=== PATIENT | male | born 1935 | race Caucasian/White ===

== ENCOUNTER 2016-09-19 10:36 | Outpatient (CLI) | payer MEDICARE, OTHER | END 2016-09-19 10:37 | disposition home or self-care (01) | DX: I82.4Z1 Acute embolism and thrombosis of unspecified deep veins of right distal lower extremity (principal) ==

== ENCOUNTER 2016-10-10 13:18 | Outpatient (CLI) | payer MEDICARE, OTHER | END 2016-10-10 13:19 | disposition home or self-care (01) | LOC: LAB 13:18 | PROVIDERS: ATTEND Internal Medicine Hematology & Oncology | DX: I82.4Z1 Acute embolism and thrombosis of unspecified deep veins of right distal lower extremity (principal) | CPT/HCPCS: 85610 ==

== ENCOUNTER 2016-11-21 11:35 | Outpatient (CLI) | payer MEDICARE, OTHER | END 2016-11-21 11:36 | disposition home or self-care (01) | DX: I82.4Z1 Acute embolism and thrombosis of unspecified deep veins of right distal lower extremity (principal) ==

== ENCOUNTER 2016-12-11 10:32 | Outpatient (CLI) | payer MEDICARE, OTHER | END 2016-12-11 10:33 | disposition home or self-care (01) | DX: I82.4Z1 Acute embolism and thrombosis of unspecified deep veins of right distal lower extremity (principal) ==

== ENCOUNTER 2016-12-26 10:33 | Outpatient (CLI) | payer MEDICARE, OTHER | END 2016-12-26 10:34 | disposition home or self-care (01) | DX: I82.4Z1 Acute embolism and thrombosis of unspecified deep veins of right distal lower extremity (principal) ==

== ENCOUNTER 2017-01-02 11:39 | Outpatient (CLI) | payer MEDICARE, OTHER | END 2017-01-02 11:40 | disposition home or self-care (01) | DX: I82.4Z1 Acute embolism and thrombosis of unspecified deep veins of right distal lower extremity (principal) ==

== ENCOUNTER 2017-01-16 11:17 | Outpatient (CLI) | payer MEDICARE, OTHER | END 2017-01-16 11:18 | disposition home or self-care (01) | DX: I82.4Z1 Acute embolism and thrombosis of unspecified deep veins of right distal lower extremity (principal) ==

== ENCOUNTER 2017-02-13 10:53 | Outpatient (CLI) | payer MEDICARE, OTHER | END 2017-02-13 10:54 | disposition home or self-care (01) | LOC: LAB 10:53 | PROVIDERS: ATTEND Internal Medicine Hematology & Oncology | DX: I82.4Z1 Acute embolism and thrombosis of unspecified deep veins of right distal lower extremity (principal) | CPT/HCPCS: 85610 ==

== ENCOUNTER 2017-02-20 10:38 | Outpatient (CLI) | payer MEDICARE, OTHER | END 2017-02-20 10:39 | disposition home or self-care (01) | LOC: LAB 10:38 | PROVIDERS: ATTEND Internal Medicine Hematology & Oncology | DX: I82.4Z1 Acute embolism and thrombosis of unspecified deep veins of right distal lower extremity (principal) | CPT/HCPCS: 85610 ==

== ENCOUNTER 2017-03-13 11:41 | Outpatient (CLI) | payer MEDICARE, OTHER | END 2017-03-13 11:42 | disposition home or self-care (01) | LOC: LAB 11:41 | PROVIDERS: ATTEND Internal Medicine Hematology & Oncology | DX: I82.4Z1 Acute embolism and thrombosis of unspecified deep veins of right distal lower extremity (principal) | CPT/HCPCS: 85610 ==

== ENCOUNTER 2017-03-27 11:37 | Outpatient (CLI) | payer MEDICARE, OTHER | END 2017-03-27 11:38 | disposition home or self-care (01) | LOC: LAB 11:37 | PROVIDERS: ATTEND Internal Medicine Hematology & Oncology | DX: I82.4Z1 Acute embolism and thrombosis of unspecified deep veins of right distal lower extremity (principal) | CPT/HCPCS: 85610 ==

== ENCOUNTER 2017-04-10 11:00 | Outpatient (CLI) | payer MEDICARE, OTHER | END 2017-04-10 11:01 | disposition home or self-care (01) | LOC: LAB 11:00 | PROVIDERS: ATTEND Internal Medicine Hematology & Oncology | DX: I82.4Z1 Acute embolism and thrombosis of unspecified deep veins of right distal lower extremity (principal) | CPT/HCPCS: 85610 ==

== ENCOUNTER 2017-05-01 11:18 | Outpatient (CLI) | payer MEDICARE, OTHER | END 2017-05-01 11:19 | disposition home or self-care (01) | LOC: LAB 11:18 | PROVIDERS: ATTEND Internal Medicine Hematology & Oncology | DX: I82.4Z1 Acute embolism and thrombosis of unspecified deep veins of right distal lower extremity (principal) | CPT/HCPCS: 85610 ==

== ENCOUNTER 2017-05-15 10:37 | Outpatient (CLI) | payer MEDICARE, OTHER | END 2017-05-15 10:38 | disposition home or self-care (01) | LOC: LAB 10:37 | PROVIDERS: ATTEND Internal Medicine Hematology & Oncology | DX: I82.4Z1 Acute embolism and thrombosis of unspecified deep veins of right distal lower extremity (principal) | CPT/HCPCS: 85610 ==

== ENCOUNTER 2017-05-22 11:04 | Outpatient (CLI) | payer MEDICARE, OTHER | END 2017-05-22 11:05 | disposition home or self-care (01) | LOC: LAB 11:04 | PROVIDERS: ATTEND Internal Medicine Hematology & Oncology | DX: I82.4Z1 Acute embolism and thrombosis of unspecified deep veins of right distal lower extremity (principal) | CPT/HCPCS: 85610 ==

== ENCOUNTER 2017-06-05 11:04 | Outpatient (CLI) | payer MEDICARE, OTHER | END 2017-06-05 11:05 | disposition home or self-care (01) | LOC: LAB 11:04 | PROVIDERS: ATTEND Internal Medicine Hematology & Oncology | DX: I82.4Z1 Acute embolism and thrombosis of unspecified deep veins of right distal lower extremity (principal) | CPT/HCPCS: 85610 ==

== ENCOUNTER 2017-06-19 10:54 | Outpatient (CLI) | payer MEDICARE, OTHER | END 2017-06-19 10:55 | disposition home or self-care (01) | LOC: LAB 10:54 | PROVIDERS: ATTEND Internal Medicine Hematology & Oncology | DX: I82.4Z1 Acute embolism and thrombosis of unspecified deep veins of right distal lower extremity (principal) | CPT/HCPCS: 85610 ==

== ENCOUNTER 2017-07-17 10:22 | Outpatient (CLI) | payer MEDICARE, OTHER | END 2017-07-17 10:23 | disposition home or self-care (01) | LOC: LAB 10:22 | PROVIDERS: ATTEND Internal Medicine Hematology & Oncology | DX: I82.4Z1 Acute embolism and thrombosis of unspecified deep veins of right distal lower extremity (principal) | CPT/HCPCS: 85610 ==

== ENCOUNTER 2017-08-28 13:49 | Outpatient (CLI) | payer MEDICARE, OTHER | END 2017-08-28 13:50 | disposition home or self-care (01) | LOC: LAB 13:49 | PROVIDERS: ATTEND Internal Medicine Hematology & Oncology | DX: I82.4Z1 Acute embolism and thrombosis of unspecified deep veins of right distal lower extremity (principal) | CPT/HCPCS: 85610 ==

== ENCOUNTER 2017-09-11 11:35 | Outpatient (CLI) | payer MEDICARE, OTHER | END 2017-09-11 11:36 | disposition home or self-care (01) | LOC: LAB 11:35 | PROVIDERS: ATTEND Internal Medicine Hematology & Oncology | DX: I82.4Z1 Acute embolism and thrombosis of unspecified deep veins of right distal lower extremity (principal) | CPT/HCPCS: 85610 ==

== ENCOUNTER 2017-10-02 11:10 | Outpatient (CLI) | payer MEDICARE, OTHER | END 2017-10-02 11:11 | disposition home or self-care (01) | LOC: LAB 11:10 | PROVIDERS: ATTEND Internal Medicine Hematology & Oncology | DX: I82.4Z1 Acute embolism and thrombosis of unspecified deep veins of right distal lower extremity (principal) | CPT/HCPCS: 85610 ==

== ENCOUNTER 2017-10-16 10:54 | Outpatient (CLI) | payer MEDICARE, OTHER | END 2017-10-16 10:55 | disposition home or self-care (01) | LOC: LAB 10:54 | PROVIDERS: ATTEND Internal Medicine Hematology & Oncology | DX: I82.4Z1 Acute embolism and thrombosis of unspecified deep veins of right distal lower extremity (principal) | CPT/HCPCS: 85610 ==

== ENCOUNTER 2017-11-13 10:33 | Outpatient (CLI) | payer MEDICARE, OTHER | END 2017-11-13 10:34 | disposition home or self-care (01) | LOC: LAB 10:33 | PROVIDERS: ATTEND Internal Medicine Hematology & Oncology | DX: I82.4Z1 Acute embolism and thrombosis of unspecified deep veins of right distal lower extremity (principal) | CPT/HCPCS: 85610 ==

== ENCOUNTER 2017-11-26 10:53 | Outpatient (CLI) | payer MEDICARE, OTHER | END 2017-11-26 10:54 | disposition home or self-care (01) | LOC: LAB 10:53 | PROVIDERS: ATTEND Internal Medicine Hematology & Oncology | DX: I82.4Z1 Acute embolism and thrombosis of unspecified deep veins of right distal lower extremity (principal) | CPT/HCPCS: 85610 ==

== ENCOUNTER 2017-12-11 10:11 | Outpatient (CLI) | payer MEDICARE, OTHER | END 2017-12-11 10:12 | disposition home or self-care (01) | LOC: LAB 10:11 | PROVIDERS: ATTEND Internal Medicine Hematology & Oncology | DX: I82.4Z1 Acute embolism and thrombosis of unspecified deep veins of right distal lower extremity (principal) | CPT/HCPCS: 85610 ==

== ENCOUNTER 2017-12-25 10:32 | Outpatient (CLI) | payer MEDICARE, OTHER | END 2017-12-25 10:33 | disposition home or self-care (01) | LOC: LAB 10:32 | PROVIDERS: ATTEND Internal Medicine Hematology & Oncology | DX: I82.4Z1 Acute embolism and thrombosis of unspecified deep veins of right distal lower extremity (principal) | CPT/HCPCS: 85610 ==

== ENCOUNTER 2018-01-08 10:48 | Outpatient (CLI) | payer MEDICARE, OTHER | END 2018-01-08 10:49 | disposition home or self-care (01) | LOC: LAB 10:48 | PROVIDERS: ATTEND Internal Medicine Hematology & Oncology | DX: I82.4Z1 Acute embolism and thrombosis of unspecified deep veins of right distal lower extremity (principal) | CPT/HCPCS: 85610 ==

== ENCOUNTER 2018-01-22 10:26 | Outpatient (CLI) | payer MEDICARE, OTHER | END 2018-01-22 10:27 | disposition home or self-care (01) | LOC: LAB 10:26 | PROVIDERS: ATTEND Internal Medicine Hematology & Oncology | DX: I82.4Z1 Acute embolism and thrombosis of unspecified deep veins of right distal lower extremity (principal) | CPT/HCPCS: 85610 ==

== ENCOUNTER 2018-02-12 10:38 | Outpatient (CLI) | payer MEDICARE, OTHER | END 2018-02-12 10:39 | disposition home or self-care (01) | LOC: LAB 10:38 | PROVIDERS: ATTEND Internal Medicine Hematology & Oncology | DX: I82.4Z1 Acute embolism and thrombosis of unspecified deep veins of right distal lower extremity (principal) | CPT/HCPCS: 85610 ==

== ENCOUNTER 2018-02-26 10:46 | Outpatient (CLI) | payer MEDICARE, OTHER | END 2018-02-26 10:47 | disposition home or self-care (01) | LOC: LAB 10:46 | PROVIDERS: ATTEND Internal Medicine Hematology & Oncology | DX: I82.4Z1 Acute embolism and thrombosis of unspecified deep veins of right distal lower extremity (principal) | CPT/HCPCS: 36415; 85610 ==

== ENCOUNTER 2018-03-26 11:13 | Outpatient (CLI) | payer MEDICARE, OTHER | END 2018-03-26 11:14 | disposition home or self-care (01) | LOC: LAB 11:13 | PROVIDERS: ATTEND Internal Medicine Hematology & Oncology | DX: I82.4Z1 Acute embolism and thrombosis of unspecified deep veins of right distal lower extremity (principal) | CPT/HCPCS: 85610 ==

== ENCOUNTER 2018-04-10 11:11 | Outpatient (CLI) | payer MEDICARE, OTHER | END 2018-04-10 11:12 | disposition home or self-care (01) | LOC: LAB 11:11 | PROVIDERS: ATTEND Internal Medicine Hematology & Oncology | DX: I82.4Z1 Acute embolism and thrombosis of unspecified deep veins of right distal lower extremity (principal) | CPT/HCPCS: 85610 ==

== ENCOUNTER 2018-04-12 12:16 | Outpatient (CLI) | payer MEDICARE, OTHER | END 2018-04-12 12:17 | disposition critical access hospital (66) | LOC: EMS 12:16 | PROVIDERS: ATTEND Surgery | DX: R07.89 Other chest pain (principal); R05 Cough | CPT/HCPCS: A0425; A0427 ==

== ENCOUNTER 2018-04-12 12:50 | Emergency (ER) | payer MEDICARE, OTHER ==
--- NOTE | 2018-04-12 12:57 | ED Physician Documentation ---
PD HPI CHEST PAIN - Stated complaint Stated Complaint: CHEST PX - Chief complaint Chief Complaint: Cardiac - History obtained from History obtained from: Patient, EMS - History of Present Illness Timing - onset: Today Timing - onset during: Rest Timing - duration: Hours (8) Timing - details: Other (woke up with symptoms) Pain level max: 7 Pain level now: 0 Quality: Pressure, Aching Location: Right shoulder/arm Radiation: Other (chest) Improved by: Nitro (EMS thinks NTG x 1 helped, but pt is unsure), Nothing, Other (taking a deep breath) Worsened by: No: Exertion, Inspiration, Eating, Movement, Palpation, Position Associated symptoms: No: Shortness of air, Diaphoresis, Nausea, Vomiting, Feeling faint / dizzy, General Weakness, Palpitations, Cough Similar symptoms before: Diagnosis (chronic R shoulder pain) Recently seen: Not recently seen - Additional information Additional information: states walked 2 miles with the pain and no changes in the symptoms. States lifted weights and that may have made his shoulder hurt more than usual. Review of Systems Ten Systems: 10 systems reviewed and negative Constitutional: denies: Fever, Chills Ears: reports: Loss of hearing (chronic hearing loss) Nose: denies: Rhinorrhea / runny nose, Congestion Throat: denies: Sore throat Cardiac: denies: Palpitations Respiratory: denies: Dyspnea, Cough, Hemoptysis, Wheezing GI: denies: Abdominal Pain, Abdominal Swelling, Nausea, Vomiting, Constipation, Diarrhea : denies: Dysuria, Frequency, Hesitancy Skin: denies: Rash Musculoskeletal: denies: Neck pain, Back pain Neurologic: denies: Focal weakness, Numbness, Headache PD PAST MEDICAL HISTORY - Past Medical History Past Medical History: Yes Cardiovascular: Hypertension, High cholesterol - Past Surgical History Past Surgical History: Yes - Present Medications Home Medications: Ambulatory Orders Medication Instructions Recorded Confirmed Calcium Carbonate/Vitamin D3 1 tab ORAL DAILY 05/19/15 05/19/15 [Calcium 500 + Vit D 200 Tablet] Folic Acid 1 mg PO DAILY 05/19/15 05/19/15 Methotrexate Sodium [Methotrexate] 30 mg PO ONCE 05/19/15 05/20/15 Omeprazole [PriLOSEC] 20 mg PO QDLUNCH 05/19/15 05/20/15 Tamsulosin [Flomax] 0.4 mg PO QPM 05/19/15 05/20/15 Warfarin [Coumadin] 2.5 mg PO DAILY 05/19/15 05/19/15 predniSONE [Deltasone] 5 mg PO 0800 05/19/15 05/20/15 Albuterol Sulf [Ventolin Hfa 04/12/18 Inhaler] Fluticasone/Salmeterol [Advair 04/12/18 100-50 Diskus] Losartan [Cozaar] 04/12/18 Nystatin Cream [Mycostatin Cream] 04/12/18 Triamcinolone 0.1% Cream [Kenalog 04/12/18 0.1% Cream] Ubidecarenone [Coenzyme Q-10] 04/12/18 - Allergies Allergies/Adverse Reactions: Allergies Allergy/AdvReac Type Severity Reaction Status Date / Time hydroxychloroquine sulfate * Allergy Intermediate Itching Verified 04/12/18 12: 59 [From Plaquenil] - Social History Does the pt smoke?: No Smoking Status: Never smoker Does the pt drink ETOH?: No Does the pt have substance abuse?: No - Immunizations Immunizations are current?: Yes - POLST Patient has POLST: No PD ED PE NORMAL - Vitals Vital signs reviewed: Yes - General General: Alert and oriented X 3, No acute distress, Well developed/nourished - HEENT HEENT: PERRL, Ears normal, Moist mucous membranes, Pharynx benign - Neck Neck: Supple, no meningeal sign - Cardiac Cardiac: RRR, Strong equal pulses - Respiratory Respiratory: No respiratory distress, Clear bilaterally - Abdomen Abdomen: Soft, Non tender, Non distended - Back Back: No spinal TTP - Derm Derm: Warm and dry, No rash - Extremities Extremities: Normal ROM s pain, No edema, No calf tenderness / cord - Neuro Neuro: Alert and oriented X 3 - Psych Psych: Normal mood, Normal affect Results - Vitals Vitals: Vital Signs - 24 hr 04/12/18 04/12/18 04/12/18 12:50 13:14 14:00 Temperature 36.7 C Heart Rate 76 79 71 Respiratory 18 20 15 Rate Blood Pressure 157/90 H 150/88 H 128/78 O2 Saturation 98 92 94 04/12/18 04/12/18 15:00 16:45 Temperature 36.6 C Heart Rate 68 68 Respiratory 14 12 Rate Blood Pressure 141/73 H 159/86 H O2 Saturation 94 95 Oxygen O2 Source [] Room air O2 Source Room air - EKG (time done) 1255 Rate: Rate (enter#) (74) Rhythm: NSR, Other (PVC) Shirley: Normal Intervals: Normal MD QRS: Normal Ischemia: Normal ST segments, Q waves (III, aVF) - Labs Labs: Laboratory Tests 04/12/18 04/12/18 04/12/18 13:25 13:25 13:25 WBC 9.0 RBC 3.83 L Hgb 12.9 L Hct 37.6 L MCV 98.3 H MCH 33.6 H MCHC 34.2 RDW 16.0 H Plt Count 276 MPV 6.7 L Neut # (Auto) 7.7 H Lymph # (Auto) 0.4 L [place] # (Auto) 0.8 Eos # (Auto) 0.0 Baso # (Auto) 0.1 Absolute Nucleated RBC 0.00 Nucleated RBC % 0.0 PT INR Sodium 137 Potassium 3.6 Chloride 104 Carbon Dioxide 23 Anion Gap 10.0 BUN 16 Creatinine 0.8 Estimated GFR (MDRD) 92 Glucose 129 H Calcium 8.9 Total Bilirubin 0.9 AST 30 ALT 30 Alkaline Phosphatase 48 Troponin I < 0.04 Total Protein 6.8 Albumin 3.4 Globulin 3.4 Albumin/Globulin Ratio 1.0 Lipase 23 04/12/18 04/12/18 13:25 16:29 WBC RBC Hgb Hct MCV MCH MCHC RDW Plt Count MPV Neut # (Auto) Lymph # (Auto) [place] # (Auto) Eos # (Auto) Baso # (Auto) Absolute Nucleated RBC Nucleated RBC % PT 28.4 H INR 2.6 H Sodium Potassium Chloride Carbon Dioxide Anion Gap BUN Creatinine Estimated GFR (MDRD) Glucose Calcium Total Bilirubin AST ALT Alkaline Phosphatase Troponin I < 0.04 Total Protein Albumin Globulin Albumin/Globulin Ratio Lipase - Rads (name of study) cxr Radiology: Prelim report reviewed, EMP read contemporaneously, See rad report ( No acute disease. ) PD MEDICAL DECISION MAKING - ED course Complexity details: reviewed results, re-evaluated patient, considered differential (No ST elevation [place], no aortic dissection, no PE, no tension pneumothorax, no aortic aneurysm), d/w patient ED course: Patient is an 83-year-old male who presents to the emergency department with right shoulder pain radiating to the left chest. Resolved prior to arrival in the emergency department. Negative troponin 2. Negative EKG, chest x-ray. Does not sound typical for cardiac pain, but sounds more consistent with his chronic shoulder pain. Heart score of 3. Patient would like to go home at this time rather than stay in the hospital. Patient and family counseled regarding signs and symptoms for which I believe and urgent re-evaluation would be necessary. Patient with good understanding of and agreement to plan and is comfortable going home at this time This document was made in part using voice recognition software. While efforts are made to proofread this document, sound alike and grammatical errors may occur. - Sepsis Event Vital Signs: Vital Signs - 24 hr 04/12/18 04/12/18 04/12/18 12:50 13:14 14:00 Temperature 36.7 C Heart Rate 76 79 71 Respiratory 18 20 15 Rate Blood Pressure 157/90 H 150/88 H 128/78 O2 Saturation 98 92 94 04/12/18 04/12/18 15:00 16:45 Temperature 36.6 C Heart Rate 68 68 Respiratory 14 12 Rate Blood Pressure 141/73 H 159/86 H O2 Saturation 94 95 Oxygen O2 Source [] Room air O2 Source Room air Departure - Departure Disposition: 01 Home, Self Care Clinical Impression: Chest pain Qualifiers: Chest pain type: unspecified Qualified Code(s): R07.9 - Chest pain, unspecified Condition: Good Instructions: ED Chest Pain Atypical Unkn Cause Follow-Up: your,doctor in 3 days for repeat evaluation [Other] Comments: The cause of your symptoms is unclear today. Your tests are normal. Return if you worsen. Discharge Date/Time: 04/12/18 17:09
[2018-04-12 13:33] LABS: BASOPHILS # (AUTO) 0.1 10^3/uL (0.0-0.1); BASOPHILS % (AUTO) 0.6 %; EOSINOPHILS % (AUTO) 0.1 %; HGB - HEMOGLOBIN 12.9 g/dL (14.0-18.0); LYMPHOCYTES # (AUTO) 0.4 10^3/uL (1.5-3.5); LYMPHOCYTES % (AUTO) 4.6 %; MEAN CORPUSCULAR HEMOGLOBIN 33.6 pg (27.0-31.0); MEAN CORPUSCULAR HGB CONC 34.2 g/dL (32.0-36.0); MEAN CORPUSCULAR VOLUME 98.3 fL (80.0-94.0); MEAN PLATELET VOLUME 6.7 fL (7.4-11.4); MONOCYTES # (AUTO) 0.8 10^3/uL (0.0-1.0); MONOCYTES % (AUTO) 8.5 %; NEUTROPHILS # (AUTO) 7.7 10^3/uL (1.5-6.6); NEUTROPHILS % (AUTO) 86.2 %; PLT - PLATELET COUNT 276 10^3/uL (130-450); RED BLOOD COUNT 3.83 10^6/uL (4.70-6.10)
[2018-04-12 13:41] LABS: INR 2.6 (0.8-1.2); PT - PROTHROMBIN TIME 28.4 secs (9.9-12.6)
[2018-04-12 13:47] LABS: ALBUMIN 3.4 g/dL (3.2-5.5); BILIRUBIN,TOTAL 0.9 mg/dL (0.2-1.0); CALCIUM 8.9 mg/dL (8.5-10.3); CREATININE 0.8 mg/dL (0.6-1.2); TOTAL PROTEIN 6.8 g/dL (6.7-8.2)
--- NOTE | 2018-04-12 13:49 | XRAY Report ---
Procedure Date: 04/12/2018 Accession Number: [id number] / [id number] Procedure: XR - Chest 1 View X-Ray CPT Code: 16131 FULL RESULT: EXAM: CHEST RADIOGRAPHY EXAM DATE: 04/12/2018 01:12 PM. CLINICAL HISTORY: Chest pain. COMPARISON: None. TECHNIQUE: 1 view. FINDINGS: Lungs/Pleura: There is evidence of a calcified granuloma or calcified scar otherwise at the right midlung. No evidence of focal infiltrate or edema. No pleural effusion. Mediastinum: Within exam limitations, the cardiomediastinal contour is normal. Other: None. IMPRESSION: No acute disease. RADIA
[2018-04-12 17:09] VITALS: BP 159/86
== END 2018-04-12 17:09 | disposition home or self-care (01) ==
LOC: EDUNIT# → ED 12:50
DX: R07.9 Chest pain, unspecified (principal); I10 Essential (primary) hypertension; E78.00 Pure hypercholesterolemia, unspecified; Z79.01 Long term (current) use of anticoagulants
CPT/HCPCS: 36415; 71045; 80053; 83690; 84484; 85025; 85610; 93005; 99283; 99284

== ENCOUNTER 2018-04-16 11:05 | Outpatient (CLI) | payer MEDICARE, OTHER | END 2018-04-16 11:06 | disposition home or self-care (01) | LOC: LAB 11:05 | PROVIDERS: ATTEND Internal Medicine Hematology & Oncology | DX: I82.4Z1 Acute embolism and thrombosis of unspecified deep veins of right distal lower extremity (principal) | CPT/HCPCS: 85610 ==

== ENCOUNTER 2018-05-13 10:56 | Outpatient (CLI) | payer MEDICARE, OTHER | END 2018-05-13 10:57 | disposition home or self-care (01) | LOC: LAB 10:56 | PROVIDERS: ATTEND Internal Medicine Hematology & Oncology | DX: I82.4Z1 Acute embolism and thrombosis of unspecified deep veins of right distal lower extremity (principal) | CPT/HCPCS: 85610 ==

== ENCOUNTER 2018-07-09 10:49 | Outpatient (CLI) | payer MEDICARE, OTHER ==
[2018-07-09 11:43] LABS: INR 2.8 (0.8-1.2); PT - PROTHROMBIN TIME 31.1 secs (9.9-12.6)
== END 2018-07-09 10:50 | disposition home or self-care (01) ==
LOC: LAB 10:49
PROVIDERS: ATTEND Internal Medicine Hematology & Oncology
DX: I82.4Z1 Acute embolism and thrombosis of unspecified deep veins of right distal lower extremity (principal)
CPT/HCPCS: 36415; 85610

== ENCOUNTER 2018-07-16 11:08 | Outpatient (CLI) | payer MEDICARE, OTHER ==
[2018-07-16 11:38] LABS: INR 2.4 (0.8-1.2)
== END 2018-07-16 11:09 | disposition home or self-care (01) ==
LOC: LAB 11:08
PROVIDERS: ATTEND Internal Medicine Hematology & Oncology
DX: I82.4Z1 Acute embolism and thrombosis of unspecified deep veins of right distal lower extremity (principal)
CPT/HCPCS: 36415; 85610

== ENCOUNTER 2018-07-30 10:43 | Outpatient (CLI) | payer MEDICARE, OTHER | END 2018-07-30 10:44 | disposition home or self-care (01) | LOC: LAB 10:43 | PROVIDERS: ATTEND Internal Medicine Hematology & Oncology | DX: I82.4Z1 Acute embolism and thrombosis of unspecified deep veins of right distal lower extremity (principal) | CPT/HCPCS: 85610 ==

== ENCOUNTER 2018-08-13 16:27 | Outpatient (CLI) | payer MEDICARE, OTHER | END 2018-08-13 16:28 | disposition short-term general hospital (02) | LOC: EMS 16:27 | PROVIDERS: ATTEND Surgery | DX: R41.82 Altered mental status, unspecified (principal) | CPT/HCPCS: A0425; A0429 ==

== ENCOUNTER 2018-10-02 08:00 | Outpatient (CLI) | payer MEDICARE, OTHER ==
[2018-10-02 17:38] LABS: CALCIUM 8.8 mg/dL (8.5-10.3); CREATININE 0.7 mg/dL (0.6-1.2)
== END 2018-10-02 08:01 ==
LOC: LAB.R 08:00
PROVIDERS: ATTEND Nurse Practitioner
DX: I50.9 Heart failure, unspecified (principal)
CPT/HCPCS: 80048

== ENCOUNTER 2018-10-16 11:25 | Outpatient (CLI) | payer MEDICARE, OTHER ==
[2018-10-16 20:01] LABS: CREATININE 0.8 mg/dL (0.6-1.2)
== END 2018-10-16 23:59 | disposition home or self-care (01) ==
LOC: LAB.R 11:25
PROVIDERS: ATTEND Nurse Practitioner
DX: I50.9 Heart failure, unspecified (principal)
CPT/HCPCS: 80051; 82565; 84520

== ENCOUNTER 2018-11-12 10:44 | Outpatient (CLI) | payer MEDICARE, OTHER | END 2018-11-12 10:45 | disposition home or self-care (01) | LOC: LAB 10:44 | PROVIDERS: ATTEND Internal Medicine Hematology & Oncology | DX: I82.4Z1 Acute embolism and thrombosis of unspecified deep veins of right distal lower extremity (principal) | CPT/HCPCS: 85610 ==

== ENCOUNTER 2018-12-10 10:41 | Outpatient (CLI) | payer MEDICARE, OTHER | END 2018-12-10 10:42 | disposition home or self-care (01) | LOC: LAB 10:41 | PROVIDERS: ATTEND Internal Medicine Hematology & Oncology | DX: I82.4Z1 Acute embolism and thrombosis of unspecified deep veins of right distal lower extremity (principal) | CPT/HCPCS: 85610 ==

== ENCOUNTER 2019-01-01 22:48 | Outpatient (CLI) | payer MEDICARE, OTHER | END 2019-01-01 22:49 | disposition short-term general hospital (02) | LOC: EMS 22:48 | PROVIDERS: ATTEND Surgery | DX: R09.89 Other specified symptoms and signs involving the circulatory and respiratory systems (principal); M54.2 Cervicalgia | CPT/HCPCS: A0425; A0427 ==

== ENCOUNTER 2019-01-07 07:11 | Outpatient (CLI) | payer MEDICARE, OTHER | END 2019-01-07 07:12 | disposition short-term general hospital (02) | LOC: EMS 07:11 | PROVIDERS: ATTEND Surgery | DX: R09.89 Other specified symptoms and signs involving the circulatory and respiratory systems (principal); R68.89 Other general symptoms and signs | CPT/HCPCS: A0425; A0427 ==

== ENCOUNTER 2019-04-14 11:53 | Outpatient (CLI) | payer MEDICARE, OTHER ==
[2019-04-14 12:20] LABS: HGB - HEMOGLOBIN 10.1 g/dL (14.0-18.0); MEAN CORPUSCULAR HEMOGLOBIN 30.1 pg (27.0-31.0); RED BLOOD COUNT 3.36 10^6/uL (4.70-6.10); RED CELL DISTRIBUTION WIDTH 20.5 % (12.0-15.0)
[2019-04-14 12:44] LABS: ALBUMIN 3.3 g/dL (3.2-5.5); ALBUMIN/GLOBULIN RATIO 1.1 (1.0-2.2); BILIRUBIN,TOTAL 0.8 mg/dL (0.2-1.0); CALCIUM 8.7 mg/dL (8.5-10.3); CREATININE 0.8 mg/dL (0.6-1.2); TOTAL PROTEIN 6.4 g/dL (6.7-8.2)
== END 2019-04-14 11:54 | disposition home or self-care (01) ==
LOC: LAB 11:53
PROVIDERS: ATTEND Internal Medicine Cardiovascular Disease
DX: R06.02 Shortness of breath (principal); I48.92 Unspecified atrial flutter; I25.110 Atherosclerotic heart disease of native coronary artery with unstable angina pectoris; I10 Essential (primary) hypertension; Z79.899 Other long term (current) drug therapy
CPT/HCPCS: 36415; 80053; 83880; 85027

== ENCOUNTER 2019-11-18 13:37 | Outpatient (CLI) | payer MEDICARE, OTHER ==
[2019-11-18 14:10] LABS: BASOPHILS % (AUTO) 0.2 %; EOSINOPHILS % (AUTO) 0.4 %; HGB - HEMOGLOBIN 9.2 g/dL (14.0-18.0); LYMPHOCYTES # (AUTO) 0.4 10^3/uL (1.5-3.5); LYMPHOCYTES % (AUTO) 7.3 %; MEAN CORPUSCULAR HEMOGLOBIN 27.9 pg (27.0-31.0); MEAN CORPUSCULAR HGB CONC 31.2 g/dL (32.0-36.0); MEAN CORPUSCULAR VOLUME 89.4 fL (80.0-94.0); MEAN PLATELET VOLUME 9.8 fL (7.4-11.4); MONOCYTES # (AUTO) 0.5 10^3/uL (0.0-1.0); MONOCYTES % (AUTO) 8.7 %; NEUTROPHILS # (AUTO) 4.7 10^3/uL (1.5-6.6); NEUTROPHILS % (AUTO) 82.9 %; PLT - PLATELET COUNT 256 10^3/uL (130-450); RED CELL DISTRIBUTION WIDTH 22.1 % (12.0-15.0); WHITE BLOOD COUNT 5.6 x10^3/uL (4.8-10.8)
[2019-11-18 14:26] LABS: ALBUMIN 3.3 g/dL (3.2-5.5); ALKALINE PHOSPHATASE 40 IU/L (42-121); ALT ALANINE AMINOTRANSFERASE 32 IU/L (10-60); AST ASPARTATE AMINOTRANSFERASE 28 IU/L (10-42); BILIRUBIN,TOTAL 0.6 mg/dL (0.2-1.0); BUN - BLOOD UREA NITROGEN 21 mg/dL (6-20); CALCIUM 8.5 mg/dL (8.5-10.3); CARBON DIOXIDE - CO2 23 mmol/L (21-32); CHLORIDE 106 mmol/L (101-111); CREATININE 0.8 mg/dL (0.6-1.2); GFR - MDRD 92 (>89); GLUCOSE 138 mg/dL (70-100); SODIUM 135 mmol/L (135-145); TOTAL PROTEIN 6.5 g/dL (6.7-8.2)
[2019-11-18 14:27] LABS: CRP - C-REACTIVE PROTEIN < 1.0 mg/dL (0-1.0)
[2019-11-20 09:54] LABS: COMPLEMENT COMPONENT C3C 98 mg/dL; COMPLEMENT COMPONENT C4C 5 mg/dL
== END 2019-11-18 13:38 | disposition home or self-care (01) ==
LOC: LAB 13:37
PROVIDERS: ATTEND Internal Medicine
DX: M35.09 Sjogren syndrome with other organ involvement (principal); Z79.899 Other long term (current) drug therapy
CPT/HCPCS: 36415; 80053; 81001; 81003; 85025; 85651; 86140; 86160; 87086

== ENCOUNTER 2019-12-03 12:28 | Outpatient (CLI) | payer MEDICARE, OTHER ==
[2019-12-03 12:46] LABS: BASOPHILS % (AUTO) 0.2 %; EOSINOPHILS # (AUTO) 0.1 10^3/uL (0.0-0.7); EOSINOPHILS % (AUTO) 1.5 %; HGB - HEMOGLOBIN 9.3 g/dL (14.0-18.0); LYMPHOCYTES # (AUTO) 0.4 10^3/uL (1.5-3.5); LYMPHOCYTES % (AUTO) 6.6 %; MEAN CORPUSCULAR HEMOGLOBIN 27.3 pg (27.0-31.0); MEAN CORPUSCULAR HGB CONC 31.1 g/dL (32.0-36.0); MEAN CORPUSCULAR VOLUME 87.7 fL (80.0-94.0); MONOCYTES # (AUTO) 0.9 10^3/uL (0.0-1.0); MONOCYTES % (AUTO) 16.8 %; NEUTROPHILS # (AUTO) 4.1 10^3/uL (1.5-6.6); NEUTROPHILS % (AUTO) 74.2 %; PLT - PLATELET COUNT 229 10^3/uL (130-450); RED BLOOD COUNT 3.41 10^6/uL (4.70-6.10); RED CELL DISTRIBUTION WIDTH 22.5 % (12.0-15.0); WHITE BLOOD COUNT 5.5 x10^3/uL (4.8-10.8)
[2019-12-03 12:56] LABS: ALBUMIN 3.3 g/dL (3.2-5.5); ALBUMIN/GLOBULIN RATIO 1.1 (1.0-2.2); BILIRUBIN,TOTAL 0.6 mg/dL (0.2-1.0); CALCIUM 8.4 mg/dL (8.5-10.3); CREATININE 0.8 mg/dL (0.6-1.2); TOTAL PROTEIN 6.3 g/dL (6.7-8.2)
== END 2019-12-03 12:29 | disposition home or self-care (01) ==
LOC: LAB 12:28
PROVIDERS: ATTEND Internal Medicine Medical Oncology
DX: D47.2 Monoclonal gammopathy (principal); M35.00 Sjogren syndrome, unspecified
CPT/HCPCS: 36415; 80053; 82784; 85025

== ENCOUNTER 2020-01-13 11:47 | Outpatient (CLI) | payer MEDICARE, OTHER ==
[2020-01-13 12:15] LABS: BILIRUBIN,URINE NEGATIVE (NEGATIVE); GLUCOSE, URINE (UA) NEGATIVE (NEGATIVE); KETONES,URINE (UA) NEGATIVE (NEGATIVE); LEUKOCYTE ESTERASE, URINE NEGATIVE (NEGATIVE); NITRITE,URINE NEGATIVE (NEGATIVE); OCCULT BLOOD,URINE TRACE-INTA (NEGATIVE); PROTEIN,URINE NEGATIVE (NEGATIVE); UROBILINOGEN,URINE 0.2 (NORMAL) E.U./dL (NORMAL)
[2020-01-13 12:17] LABS: BASOPHILS % (AUTO) 0.3 %; EOSINOPHILS # (AUTO) 0.1 10^3/uL (0.0-0.7); EOSINOPHILS % (AUTO) 0.9 %; HGB - HEMOGLOBIN 10.1 g/dL (14.0-18.0); LYMPHOCYTES # (AUTO) 0.3 10^3/uL (1.5-3.5); LYMPHOCYTES % (AUTO) 4.5 %; MEAN CORPUSCULAR HEMOGLOBIN 27.7 pg (27.0-31.0); MEAN CORPUSCULAR HGB CONC 31.2 g/dL (32.0-36.0); MEAN CORPUSCULAR VOLUME 88.8 fL (80.0-94.0); MEAN PLATELET VOLUME 9.7 fL (7.4-11.4); MONOCYTES # (AUTO) 0.9 10^3/uL (0.0-1.0); MONOCYTES % (AUTO) 14.1 %; NEUTROPHILS # (AUTO) 5.3 10^3/uL (1.5-6.6); NEUTROPHILS % (AUTO) 79.7 %; PLT - PLATELET COUNT 224 10^3/uL (130-450); RED BLOOD COUNT 3.65 10^6/uL (4.70-6.10); RED CELL DISTRIBUTION WIDTH 24.7 % (12.0-15.0); WHITE BLOOD COUNT 6.6 x10^3/uL (4.8-10.8)
[2020-01-13 12:28] LABS: CLARITY,URINE CLEAR (CLEAR)
[2020-01-13 12:29] LABS: BACTERIA,URINE Rare /HPF (None Seen); RBC,URINE 0-5 /HPF (0-5); SQUAMOUS EPITHELIAL CELL,UR NONE SEEN (<= Few)
[2020-01-13 12:35] LABS: ALBUMIN 3.4 g/dL (3.2-5.5); ALBUMIN/GLOBULIN RATIO 1.2 (1.0-2.2); BILIRUBIN,TOTAL 0.5 mg/dL (0.2-1.0); CALCIUM 8.6 mg/dL (8.5-10.3); CREATININE 0.8 mg/dL (0.6-1.2); TOTAL PROTEIN 6.3 g/dL (6.7-8.2)
[2020-01-15 10:39] LABS: COMPLEMENT COMPONENT C3C 100 mg/dL; COMPLEMENT COMPONENT C4C 6 mg/dL
== END 2020-01-13 11:48 | disposition home or self-care (01) ==
LOC: LAB 11:47
PROVIDERS: ATTEND Internal Medicine
DX: M35.09 Sjogren syndrome with other organ involvement (principal); Z79.899 Other long term (current) drug therapy
CPT/HCPCS: 36415; 80053; 81001; 83540; 84466; 85025; 85651; 86160; 87086

== ENCOUNTER 2020-02-08 09:22 | Outpatient (CLI) | payer MEDICARE, OTHER | END 2020-02-08 09:23 | disposition home or self-care (01) | LOC: LAB 09:22 | PROVIDERS: ATTEND Dermatology | DX: Z11.59 Encounter for screening for other viral diseases (principal); Z20.828 Contact with and (suspected) exposure to other viral communicable diseases | CPT/HCPCS: 81599 ==

== ENCOUNTER 2022-05-15 07:12 | Outpatient (CLI) | payer MEDICARE, OTHER ==
[2022-05-15 07:40] LABS: BASOPHILS % (AUTO) 0.5 %; EOSINOPHILS # (AUTO) 0.2 10^3/uL (0.0-0.7); EOSINOPHILS % (AUTO) 3.9 %; HCT - HEMATOCRIT 36.1 % (42.0-52.0); HGB - HEMOGLOBIN 12.4 g/dL (14.0-18.0); LYMPHOCYTES # (AUTO) 0.5 10^3/uL (1.5-3.5); LYMPHOCYTES % (AUTO) 10.8 %; MEAN CORPUSCULAR HEMOGLOBIN 34.6 pg (27.0-31.0); MEAN CORPUSCULAR HGB CONC 34.3 g/dL (32.0-36.0); MEAN CORPUSCULAR VOLUME 100.8 fL (80.0-94.0); MEAN PLATELET VOLUME 9.7 fL (7.4-11.4); MONOCYTES # (AUTO) 0.8 10^3/uL (0.0-1.0); MONOCYTES % (AUTO) 18.3 %; NEUTROPHILS # (AUTO) 2.9 10^3/uL (1.5-6.6); NEUTROPHILS % (AUTO) 65.8 %; PLT - PLATELET COUNT 162 10^3/uL (130-450); RED BLOOD COUNT 3.58 10^6/uL (4.70-6.10); RED CELL DISTRIBUTION WIDTH 16.5 % (12.0-15.0); WHITE BLOOD COUNT 4.4 x10^3/uL (4.8-10.8)
[2022-05-15 08:08] LABS: ALBUMIN 3.5 g/dL (3.2-5.5); BILIRUBIN,TOTAL 1.1 mg/dL (0.2-1.0); CREATININE 0.7 mg/dL (0.6-1.2); POTASSIUM 3.5 mmol/L (3.5-5.0); TOTAL PROTEIN 6.9 g/dL (6.7-8.2)
[2022-05-16 18:07] LABS: KAPPA FREE LT CHAINS SERUM 165.5 mg/L (3.3-19.4); LAMBDA FREE LT CHAINS SERUM 17.6 mg/L (5.7-26.3)
[2022-05-17 16:08] LABS: ALBUMIN 3.2 g/dL (2.9-4.4); ALPHA-1-GLOBULIN 0.2 g/dL (0.0-0.4); ALPHA-2-GLOBULIN 0.6 g/dL (0.4-1.0); BETA GLOBULIN 1.2 g/dL (0.7-1.3); GAMMA GLOBULIN 1.1 g/dL (0.4-1.8); GLOBULIN, TOTAL 3.1 g/dL (2.2-3.9); PROTEIN TOTAL 6.3 g/dL (6.0-8.5)
== END 2022-05-15 07:13 | disposition home or self-care (01) ==
LOC: LAB 07:12
PROVIDERS: ATTEND Internal Medicine Medical Oncology
DX: D47.2 Monoclonal gammopathy (principal)
CPT/HCPCS: 36415; 80053; 82728; 83521; 83540; 83883; 84155; 84165; 84466; 85025

== ENCOUNTER 2022-07-24 08:00 | Outpatient (CLI) | payer MEDICARE, OTHER | END 2022-07-24 08:01 | disposition short-term general hospital (02) | LOC: EMS 08:00 | DX: M54.9 Dorsalgia, unspecified (principal); Z95.2 Presence of prosthetic heart valve; I25.2 Old myocardial infarction | CPT/HCPCS: A0425; A0427 ==

== ENCOUNTER → 2022-08-04 | Outpatient (CLI) | payer MEDICARE, OTHER | END | disposition short-term general hospital (02) | LOC: EMS 11:21 | DX: R29.898 Other symptoms and signs involving the musculoskeletal system (principal) | CPT/HCPCS: A0425; A0427 ==

== ENCOUNTER 2022-08-13 13:45 | Outpatient (CLI) | payer MEDICARE, OTHER ==
[2022-08-13 14:15] LABS: BASOPHILS % (AUTO) 0.4 %; EOSINOPHILS # (AUTO) 0.1 10^3/uL (0.0-0.7); EOSINOPHILS % (AUTO) 1.3 %; HCT - HEMATOCRIT 31.7 % (42.0-52.0); HGB - HEMOGLOBIN 10.5 g/dL (14.0-18.0); LYMPHOCYTES # (AUTO) 0.3 10^3/uL (1.5-3.5); LYMPHOCYTES % (AUTO) 5.4 %; MEAN CORPUSCULAR HEMOGLOBIN 34.3 pg (27.0-31.0); MEAN CORPUSCULAR HGB CONC 33.1 g/dL (32.0-36.0); MEAN CORPUSCULAR VOLUME 103.6 fL (80.0-94.0); MEAN PLATELET VOLUME 9.9 fL (7.4-11.4); MONOCYTES # (AUTO) 0.6 10^3/uL (0.0-1.0); MONOCYTES % (AUTO) 11.3 %; NEUTROPHILS # (AUTO) 4.5 10^3/uL (1.5-6.6); NEUTROPHILS % (AUTO) 80.9 %; PLT - PLATELET COUNT 197 10^3/uL (130-450); RED BLOOD COUNT 3.06 10^6/uL (4.70-6.10); RED CELL DISTRIBUTION WIDTH 17.2 % (12.0-15.0); WHITE BLOOD COUNT 5.5 x10^3/uL (4.8-10.8)
[2022-08-13 14:20] LABS: CALCIUM 8.4 mg/dL (8.5-10.3); CREATININE 0.6 mg/dL (0.6-1.2); POTASSIUM 4.2 mmol/L (3.5-5.0)
[2022-08-13 14:33] LABS: INR 1.5 (0.8-1.2); PT - PROTHROMBIN TIME 16.8 secs (9.9-12.6)
== END 2022-08-13 13:46 | disposition home or self-care (01) ==
LOC: LAB 13:45
PROVIDERS: ATTEND Internal Medicine Interventional Cardiology
DX: I48.0 Paroxysmal atrial fibrillation (principal); I35.0 Nonrheumatic aortic (valve) stenosis
CPT/HCPCS: 36415; 80048; 85025; 85610

== ENCOUNTER 2022-08-16 08:23 | Outpatient (CLI) | payer MEDICARE, OTHER | END 2022-08-16 08:24 | disposition short-term general hospital (02) | LOC: EMS 08:23 | DX: R06.02 Shortness of breath (principal); R05.9 Cough, unspecified; R11.0 Nausea | CPT/HCPCS: A0425; A0429 ==

== ENCOUNTER 2022-10-03 14:31 | Outpatient (CLI) | payer MEDICARE, OTHER ==
[2022-10-03 15:14] LABS: BILIRUBIN,URINE NEGATIVE (NEGATIVE); GLUCOSE, URINE (UA) NEGATIVE (NEGATIVE); KETONES,URINE (UA) NEGATIVE (NEGATIVE); LEUKOCYTE ESTERASE, URINE NEGATIVE (NEGATIVE); NITRITE,URINE NEGATIVE (NEGATIVE); OCCULT BLOOD,URINE NEGATIVE (NEGATIVE); PROTEIN,URINE NEGATIVE (NEGATIVE); UROBILINOGEN,URINE 0.2 (NORMAL) E.U./dL (NORMAL)
[2022-10-03 15:15] LABS: CLARITY,URINE CLEAR (CLEAR)
[2022-10-03 15:25] LABS: ALBUMIN 3.1 g/dL (3.2-5.5); BILIRUBIN,TOTAL 0.8 mg/dL (0.2-1.0); CALCIUM 8.6 mg/dL (8.5-10.3); CREATININE 0.6 mg/dL (0.6-1.2); POTASSIUM 3.7 mmol/L (3.5-5.0); TOTAL PROTEIN 6.1 g/dL (6.7-8.2)
[2022-10-03 15:38] LABS: BACTERIA,URINE None Seen /HPF (None Seen); RBC,URINE None Seen /HPF (0-5); SQUAMOUS EPITHELIAL CELL,UR NONE SEEN (<= Few); WBC,URINE 0-3 /HPF (0-3)
[2022-10-03 15:45] LABS: BASOPHILS % (AUTO) 0.2 %; EOSINOPHILS % (AUTO) 0.8 %; HCT - HEMATOCRIT 33.8 % (42.0-52.0); HGB - HEMOGLOBIN 10.9 g/dL (14.0-18.0); LYMPHOCYTES # (AUTO) 0.4 10^3/uL (1.5-3.5); LYMPHOCYTES % (AUTO) 8.1 %; MEAN CORPUSCULAR HEMOGLOBIN 32.9 pg (27.0-31.0); MEAN CORPUSCULAR HGB CONC 32.2 g/dL (32.0-36.0); MEAN CORPUSCULAR VOLUME 102.1 fL (80.0-94.0); MEAN PLATELET VOLUME 10.2 fL (7.4-11.4); MONOCYTES # (AUTO) 0.6 10^3/uL (0.0-1.0); MONOCYTES % (AUTO) 11.2 %; NEUTROPHILS # (AUTO) 3.9 10^3/uL (1.5-6.6); NEUTROPHILS % (AUTO) 78.5 %; PLT - PLATELET COUNT 142 10^3/uL (130-450); RED BLOOD COUNT 3.31 10^6/uL (4.70-6.10); RED CELL DISTRIBUTION WIDTH 16.7 % (12.0-15.0); WHITE BLOOD COUNT 4.9 x10^3/uL (4.8-10.8)
[2022-10-05 03:09] LABS: COMPLEMENT C3 87 mg/dL (82-167); COMPLEMENT C4 7 mg/dL (12-38)
== END 2022-10-03 14:32 | disposition home or self-care (01) ==
LOC: LAB 14:31
PROVIDERS: ATTEND Internal Medicine
DX: M35.0B Sjogren syndrome with vasculitis (principal); Z79.52 Long term (current) use of systemic steroids; Z79.631 Long term (current) use of antimetabolite agent
CPT/HCPCS: 36415; 80053; 81001; 85025; 85651; 86160

== ENCOUNTER 2022-10-09 12:16 | Outpatient (CLI) | payer MEDICARE, OTHER ==
[2022-10-09 12:31] LABS: BASOPHILS % (AUTO) 0.2 %; EOSINOPHILS % (AUTO) 0.3 %; HCT - HEMATOCRIT 35.1 % (42.0-52.0); HGB - HEMOGLOBIN 11.3 g/dL (14.0-18.0); LYMPHOCYTES # (AUTO) 0.3 10^3/uL (1.5-3.5); LYMPHOCYTES % (AUTO) 4.5 %; MEAN CORPUSCULAR HEMOGLOBIN 33.2 pg (27.0-31.0); MEAN CORPUSCULAR HGB CONC 32.2 g/dL (32.0-36.0); MEAN CORPUSCULAR VOLUME 103.2 fL (80.0-94.0); MEAN PLATELET VOLUME 10.2 fL (7.4-11.4); MONOCYTES # (AUTO) 0.2 10^3/uL (0.0-1.0); NEUTROPHILS # (AUTO) 5.8 10^3/uL (1.5-6.6); NEUTROPHILS % (AUTO) 91.7 %; PLT - PLATELET COUNT 175 10^3/uL (130-450); RED CELL DISTRIBUTION WIDTH 16.7 % (12.0-15.0); WHITE BLOOD COUNT 6.3 x10^3/uL (4.8-10.8)
[2022-10-09 12:44] LABS: BILIRUBIN,URINE NEGATIVE (NEGATIVE); GLUCOSE, URINE (UA) NEGATIVE (NEGATIVE); KETONES,URINE (UA) NEGATIVE (NEGATIVE); LEUKOCYTE ESTERASE, URINE NEGATIVE (NEGATIVE); NITRITE,URINE NEGATIVE (NEGATIVE); OCCULT BLOOD,URINE NEGATIVE (NEGATIVE); PROTEIN,URINE NEGATIVE (NEGATIVE); UROBILINOGEN,URINE 0.2 (NORMAL) E.U./dL (NORMAL)
[2022-10-09 12:46] LABS: ALBUMIN 3.1 g/dL (3.2-5.5); BILIRUBIN,TOTAL 0.9 mg/dL (0.2-1.0); CREATININE 0.6 mg/dL (0.6-1.2); TOTAL PROTEIN 6.3 g/dL (6.7-8.2)
[2022-10-09 12:53] LABS: BACTERIA,URINE None Seen /HPF (None Seen); CLARITY,URINE CLEAR (CLEAR); RBC,URINE None Seen /HPF (0-5); SQUAMOUS EPITHELIAL CELL,UR NONE SEEN (<= Few); WBC,URINE 0-3 /HPF (0-3)
[2022-10-09 12:55] LABS: CALCIUM 8.8 mg/dL (8.5-10.3)
[2022-10-10 08:10] LABS: COMPLEMENT C3 90 mg/dL (82-167); COMPLEMENT C4 9 mg/dL (12-38)
== END 2022-10-09 12:17 | disposition home or self-care (01) ==
LOC: LAB 12:16
PROVIDERS: ATTEND Internal Medicine
DX: M35.0B Sjogren syndrome with vasculitis (principal); L95.8 Other vasculitis limited to the skin; D63.8 Anemia in other chronic diseases classified elsewhere; M15.9 Polyosteoarthritis, unspecified; Z79.52 Long term (current) use of systemic steroids; Z79.631 Long term (current) use of antimetabolite agent
CPT/HCPCS: 36415; 80053; 81001; 85025; 85651; 86160

== ENCOUNTER 2022-12-15 02:51 | Outpatient (CLI) | payer MEDICARE, OTHER | END 2022-12-15 02:52 | disposition critical access hospital (66) | LOC: EMS 02:51 | DX: R41.0 Disorientation, unspecified (principal); R09.02 Hypoxemia | CPT/HCPCS: A0425; A0427 ==

== ENCOUNTER 2022-12-15 03:24 | Emergency (ER) | payer MEDICARE, OTHER ==
--- NOTE | 2022-12-15 03:35 | ED Physician Documentation ---
PD HPI ALTERED MENTAL STATUS - Stated complaint Stated Complaint: AMS - History obtained from History obtained from: Patient, Family (spouse (in ED at bedside)) - Additional information Additional information: HPI is from patient, EMS, and patient's . Patient's says that she was in bed asleep when, approximately 45 minutes prior to arrival, she heard the patient calling out for help from an adjacent room. She says that he uses CPAP at night and typically sleeps in a recliner in the room that she found him in. She went to check on the patient and found him on the floor lying on a treadmill that was adjacent to the chair he usually sits in. He appeared to be short of breath and confused. She tried to help him stand back up but she was unable to do so and thus she called 911. EMS says that on their arrival, they found the patient to have a pulse ox on room air of 75%. They also note that he was confused. Fingerstick blood sugar was 152. EMS applied nasal cannula oxygen at 10 L/min, and this gradually but steadily improved his pulse ox to 96 to 97%, and his mentation improved back to baseline in correlation with the pulse ox improvement.Patient is alert, awake, and oriented x4 on arrival to the emergency department. He says he does not remember how he ended up on the treadmill. Patient's acknowledges that patient could have fallen, as she was not present when he went to ground. Although patient's past medical history/diagnoses include COPD, the patient has never been, nor does he, require supplemental oxygen. Furthermore, patient's says that he walks a mile (by walking around the house, but meticulously recording the distance he has walked each day) and checks his pulse ox daily with consistent results in the mid to upper 90s. Patient denies chest pain, chest tightness/squeezing/pressure. Patient's does point out that he has had previous heart attack and did not have any chest pain at that time, either. Review of Systems Constitutional: denies: Fever Cardiac: denies: Chest pain / pressure, Palpitations, Pedal edema Respiratory: reports: Dyspnea. denies: Cough GI: reports: Reviewed and negative PD PAST MEDICAL HISTORY - Past Medical History Cardiovascular: Hypertension, High cholesterol - Past Surgical History Past Surgical History: Yes - Present Medications Home Medications: Ambulatory Orders Medication Instructions Recorded Confirmed Calcium Carbonate/Vitamin D3 1 tab ORAL DAILY 05/19/15 05/19/15 [Calcium 500 + Vit D 200 Tablet] Folic Acid 1 mg PO DAILY 05/19/15 05/19/15 Omeprazole [PriLOSEC] 20 mg PO QDLUNCH 05/19/15 05/20/15 Tamsulosin [Flomax] 0.4 mg PO QPM 05/19/15 05/20/15 Warfarin [Coumadin] 2.5 mg PO DAILY 05/19/15 05/19/15 metHOTREXate sodium [Methotrexate] 30 mg PO ONCE 05/19/15 05/20/15 predniSONE [Deltasone] 5 mg PO 0800 05/19/15 05/20/15 Albuterol Sulf [Ventolin Hfa 04/12/18 Inhaler] Fluticasone/Salmeterol [Advair 04/12/18 100-50 Diskus] Losartan [Cozaar] 04/12/18 Nystatin Cream [Mycostatin Cream] 04/12/18 Triamcinolone 0.1% Cream [Kenalog 04/12/18 0.1% Cream] Ubidecarenone [Coenzyme Q-10] 04/12/18 - Allergies Allergies/Adverse Reactions: Allergies Allergy/AdvReac Type Severity Reaction Status Date / Time hydroxychloroquine sulfate * Allergy Intermediate Itching Verified 12/15/22 03:46 [From Plaquenil] benzonatate Allergy Unknown Verified 12/15/22 03:46 [From Tessalon Perles] midazolam Allergy Unknown Verified 12/15/22 03:46 risedronate sodium Allergy Unknown Verified 12/15/22 03:46 adhesive tape AdvReac Unknown Verified 12/15/22 03:46 - Social History Does the pt smoke?: No Smoking Status: Never smoker Does the pt drink ETOH?: No Does the pt have substance abuse?: No - Immunizations Immunizations are current?: Yes - POLST Patient has POLST: No PD ED PE NORMAL - Vitals Vital signs reviewed: Yes - General General: Alert and oriented X 3, No acute distress, Well developed/nourished - HEENT HEENT: Moist mucous membranes - Neck Neck: No JVD - Cardiac Cardiac: No murmur - Respiratory Respiratory: No respiratory distress - Abdomen Abdomen: Soft, Non tender - Derm Derm: Normal color, Warm and dry - Extremities Extremities: No edema - Neuro Neuro: Alert and oriented X 3, Normal speech Eye Opening: Spontaneous Motor: Obeys Commands Verbal: Oriented GCS Score: 15 PD ED PE EXPANDED - Cardiac Cardiac: Regular Rhythm, Other (regular rhythm with frequent extra beats) - Respiratory Respiratory: Rales (bilateral lower lung hightower) Results - Vitals Vitals: Vital Signs - 24 hr 12/15/22 12/15/22 12/15/22 09:04 11:15 13:00 Temperature 36.9 C Heart Rate 93 91 88 Respiratory 18 18 23 Rate Blood Pressure 107/74 130/78 135/75 H O2 Saturation 100 100 100 If not protocol 2 2 4 : Oxygen Flow, liters/minute 12/15/22 12/15/22 13:35 15:00 Temperature Heart Rate 106 H Respiratory 22 Rate Blood Pressure 137/86 H O2 Saturation 99 95 If not protocol : Oxygen Flow, liters/minute Oxygen O2 Source [] Room air O2 Source Room air - EKG (time done) No standard instances EKG releavant findings:: EKG personally interpreted by author of this note. Relevant findings are: EKG reviewed by me, relevant findings are: Rate: Rate (enter#) (102) Rhythm: Sinus tachycardia, Other (PVCs) [place]: Normal Intervals: Wide QRS (LBBB), LBBB Other comments: Other comments (Does not meet Sgarbossa criteria) - Labs Labs: Laboratory Tests 12/15/22 12/15/22 12/15/22 03:48 03:48 03:48 WBC 12.6 H RBC 3.43 L Hgb 11.6 L Hct 35.0 L MCV 102.0 H MCH 33.8 H MCHC 33.1 RDW 18.5 H Plt Count 133 MPV 10.4 Neut # (Auto) 11.2 H Lymph # (Auto) 0.3 L Bartholomew # (Auto) 1.0 Eos # (Auto) 0.0 Baso # (Auto) 0.0 Absolute Nucleated RBC 0.00 Nucleated RBC % 0.0 APTT Sodium 136 Potassium 3.4 L Chloride 101 Carbon Dioxide 24 Anion Gap 11.0 BUN 29 H Creatinine 0.8 Estimated GFR (MDRD) 91 Glucose 116 H Calcium 8.6 Total Bilirubin 1.3 H AST 33 ALT 25 Alkaline Phosphatase 43 Troponin I High Sens B-Natriuretic Peptide Total Protein 6.4 L Albumin 3.4 Globulin 3.0 Albumin/Globulin Ratio 1.1 Lipase 26 TSH 2.72 Urine Color Urine Clarity Urine pH Ur Specific [place] Urine Protein Urine Glucose (UA) Urine Ketones Urine Occult Blood Urine Nitrite Urine Bilirubin Urine Urobilinogen Ur Leukocyte Esterase Ur Microscopic Review Urine Culture Comments Nasal Adenovirus (PCR) Nasal B. parapertussis DNA (PCR) Nasal Coronavir 229E PCR Nasal Coronavir HKU1 PCR Nasal Coronavir NL63 PCR Nasal Coronavir OC43 PCR Nasal Enterovir/Rhinovir PCR Nasal Influenza B PCR Nasal Influenza A PCR Nasal Parainfluen 1 PCR Nasal Parainfluen 2 PCR Nasal Parainfluen 3 PCR Nasal Parainfluen 4 PCR Nasal RSV (PCR) Nasal B.pertussis DNA PCR Nasal C.pneumoniae (PCR) Yuri Human Metapneumo PCR Nasal M.pneumoniae (PCR) Nasal SARS-CoV-2 (PCR) 12/15/22 12/15/22 12/15/22 03:48 03:48 03:50 WBC RBC Hgb Hct MCV MCH MCHC RDW Plt Count MPV Neut # (Auto) Lymph # (Auto) Bartholomew # (Auto) Eos # (Auto) Baso # (Auto) Absolute Nucleated RBC Nucleated RBC % APTT Sodium Potassium Chloride Carbon Dioxide Anion Gap BUN Creatinine Estimated GFR (MDRD) Glucose Calcium Total Bilirubin AST ALT Alkaline Phosphatase Troponin I High Sens 332.7 H* B-Natriuretic Peptide 992 H Total Protein Albumin Globulin Albumin/Globulin Ratio Lipase TSH Urine Color Urine Clarity Urine pH Ur Specific [place] Urine Protein Urine Glucose (UA) Urine Ketones Urine Occult Blood Urine Nitrite Urine Bilirubin Urine Urobilinogen Ur Leukocyte Esterase Ur Microscopic Review Urine Culture Comments Nasal Adenovirus (PCR) NOT DETECTED Nasal B. parapertussis DNA (PCR) NOT DETECTED Nasal Coronavir 229E PCR NOT DETECTED Nasal Coronavir HKU1 PCR NOT DETECTED Nasal Coronavir NL63 PCR NOT DETECTED Nasal Coronavir OC43 PCR NOT DETECTED Nasal Enterovir/Rhinovir PCR NOT DETECTED Nasal Influenza B PCR NOT DETECTED Nasal Influenza A PCR NOT DETECTED Nasal Parainfluen 1 PCR NOT DETECTED Nasal Parainfluen 2 PCR NOT DETECTED Nasal Parainfluen 3 PCR NOT DETECTED Nasal Parainfluen 4 PCR NOT DETECTED Nasal RSV (PCR) NOT DETECTED Nasal B.pertussis DNA PCR NOT DETECTED Nasal C.pneumoniae (PCR) NOT DETECTED Yuri Human Metapneumo PCR NOT DETECTED Nasal M.pneumoniae (PCR) NOT DETECTED Nasal SARS-CoV-2 (PCR) NOT DETECTED 12/15/22 12/15/22 12/15/22 04:02 06:14 14:56 WBC RBC Hgb Hct MCV MCH MCHC RDW Plt Count MPV Neut # (Auto) Lymph # (Auto) Barth[place]omew # (Auto) Eos # (Auto) Baso # (Auto) Absolute Nucleated RBC Nucleated RBC % APTT 77.7 H Sodium Potassium Chloride Carbon Dioxide Anion Gap BUN Creatinine Estimated GFR (MDRD) Glucose Calcium Total Bilirubin AST ALT Alkaline Phosphatase Troponin I High Sens 1509.7 H* B-Natriuretic Peptide Total Protein Albumin Globulin Albumin/Globulin Ratio Lipase TSH Urine Color YELLOW Urine Clarity CLEAR Urine pH 6.5 Ur Specific [place] 1.015 Urine Protein NEGATIVE Urine Glucose (UA) NEGATIVE Urine Ketones NEGATIVE Urine Occult Blood NEGATIVE Urine Nitrite NEGATIVE Urine Bilirubin NEGATIVE Urine Urobilinogen 0.2 (NORMAL) Ur Leukocyte Esterase NEGATIVE Ur Microscopic Review NOT INDICATED Urine Culture Comments NOT INDICATED Nasal Adenovirus (PCR) Nasal B. parapertussis DNA (PCR) Nasal Coronavir 229E PCR Nasal Coronavir HKU1 PCR Nasal Coronavir NL63 PCR Nasal Coronavir OC43 PCR Nasal Enterovir/Rhinovir PCR Nasal Influenza B PCR Nasal Influenza A PCR Nasal Parainfluen 1 PCR Nasal Parainfluen 2 PCR Nasal Parainfluen 3 PCR Nasal Parainfluen 4 PCR Nasal RSV (PCR) Nasal B.pertussis DNA PCR Nasal C.pneumoniae (PCR) Yuri Human Metapneumo PCR Nasal M.pneumoniae (PCR) Nasal SARS-CoV-2 (PCR) - Rads (name of study) chest xray Relevant Findings:: Prelim report reviewed, EMP independent interpretation of test (I reviewed these images and my interpretation of the study is bilateral lower lung field pulmonary edema, cardiomegaly.), See rad report CTH Relevant Findings:: Prelim report reviewed, See rad report PD Medical Decision Making - ED course Complexity details: reviewed results, re-evaluated patient, considered different ial, d/w patient, d/w family ED course: On patient arrival, I was in the room as EMS was given report. The ED RN turned off the oxygen shortly after patient's arrival, and a rapid drop in pulse ox to mid to low 80s, with correlating pleth, was noted and thus the oxygen was immediately turned back to 10 L which rapidly brought the pulse ox back to 95- 97%. 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 EKG shows a left bundle branch block, does not meet Sgarbossa criteria. The only previous EKG available in [facility] is from several years ago and does not show a left bundle branch block; fortunately, patient's is able to pull up patient's MyChart from [facility] and she shows me an EKG interpretation from 2021 which does include finding of left bundle branch block. His high-sensitivity troponin is 332, with a tth-edh-k-half-hour repeat of 1509. BNP is 992. Minimal leukocytosis with white blood cell count of 12.6. Chest x-ray evidences bilateral pulmonary edema at the bases. Due to the potential for a fall in this patient who is taking Eliquis, I also ordered a CT head and there are no concerning/acute findings on this study. I discussed these test results with the patient and his , who is in the ED at patient's bedside. I also discussed with the patient the extent of treatment that he would desire; I specifically gave the example of whether or not he would be willing to undergo a procedure, such as a cardiac stent if it were i ndicated. The patient indicates to me that he would want such a procedure performed if indicated. I discussed the case with Dr. Rees (manager of information administration manager for patient's cardiology group which is [facility]; patient's manager of information is Dr. Malhotra); he agrees the patient would be appropriate for transfer to [facility] for NSTEMI. Care of patient is turned over to the oncoming ED physician (Dr. Gaston) at the end of my shift pending disposition to appropriate facility that has bed availability. At the end of my shift, [place] [facility] had been contacted and they were looking into bed availability. Departure - Departure Disposition: Transfer Acute Care Hosp Clinical Impression: NSTEMI (non-ST elevated myocardial infarction) CHF (congestive heart failure) Qualifiers: Heart failure type: unspecified Heart failure chronicity: acute on chronic Qualified Code(s): I50.9 - Heart failure, unspecified Condition: Serious Discharge Date/Time: 12/15/22 16:13
[2022-12-15] MEDS ORDERED: ALBUTEROL NEB 2.5 MG/3 ML INH ONE (03:39)
[2022-12-15 03:58] LABS: BASOPHILS % (AUTO) 0.2 %; EOSINOPHILS % (AUTO) 0.1 %; HGB - HEMOGLOBIN 11.6 g/dL (14.0-18.0); LYMPHOCYTES # (AUTO) 0.3 10^3/uL (1.5-3.5); LYMPHOCYTES % (AUTO) 2.2 %; MEAN CORPUSCULAR HEMOGLOBIN 33.8 pg (27.0-31.0); MEAN CORPUSCULAR HGB CONC 33.1 g/dL (32.0-36.0); MEAN PLATELET VOLUME 10.4 fL (7.4-11.4); MONOCYTES % (AUTO) 7.9 %; NEUTROPHILS # (AUTO) 11.2 10^3/uL (1.5-6.6); NEUTROPHILS % (AUTO) 88.9 %; PLT - PLATELET COUNT 133 10^3/uL (130-450); RED BLOOD COUNT 3.43 10^6/uL (4.70-6.10); RED CELL DISTRIBUTION WIDTH 18.5 % (12.0-15.0); WHITE BLOOD COUNT 12.6 x10^3/uL (4.8-10.8)
[2022-12-15 04:07] LABS: ALBUMIN 3.4 g/dL (3.2-5.5); ALBUMIN/GLOBULIN RATIO 1.1 (1.0-2.2); BILIRUBIN,TOTAL 1.3 mg/dL (0.2-1.0); CALCIUM 8.6 mg/dL (8.5-10.3); CREATININE 0.8 mg/dL (0.6-1.2); POTASSIUM 3.4 mmol/L (3.5-5.0); TOTAL PROTEIN 6.4 g/dL (6.7-8.2)
[2022-12-15] MEDS ORDERED: IPRATROPIUM/ALBUTEROL 3 ML NEB INH STA (04:10)
[2022-12-15] MEDS ORDERED: ALBUTEROL NEB 2.5 MG/3 ML INH STA ×2 (04:11)
[2022-12-15 04:23] LABS: BILIRUBIN,URINE NEGATIVE (NEGATIVE); GLUCOSE, URINE (UA) NEGATIVE (NEGATIVE); KETONES,URINE (UA) NEGATIVE (NEGATIVE); LEUKOCYTE ESTERASE, URINE NEGATIVE (NEGATIVE); NITRITE,URINE NEGATIVE (NEGATIVE); OCCULT BLOOD,URINE NEGATIVE (NEGATIVE); PH,URINE 6.5 PH (5.0-7.5); PROTEIN,URINE NEGATIVE (NEGATIVE); UROBILINOGEN,URINE 0.2 (NORMAL) E.U./dL (NORMAL)
[2022-12-15 04:24] LABS: CLARITY,URINE CLEAR (CLEAR)
[2022-12-15] MEDS ORDERED: FUROSEMIDE 40 MG/4 ML VIAL IVP STA (05:16)
[2022-12-15 05:40] LABS: B. PARAPERTUSSIS- RESP PCR PAN NOT DETECTED; B. PERTUSSIS- RESP PCR PANEL NOT DETECTED; C. PNEUMONIAE- RESP PCR PANEL NOT DETECTED; CORONAVIRUS 229E-RESP PCR NOT DETECTED; CORONAVIRUS HKU1-RESP PCR NOT DETECTED; CORONAVIRUS NL63-RESP PCR NOT DETECTED; CORONAVIRUS OC43-RESP PCR NOT DETECTED; HUMAN METAPNEUMOVIRUS NOT DETECTED; INFLUENZA A- RESP PCR PANEL NOT DETECTED; INFLUENZA B - RESP PCR PANEL NOT DETECTED; M. PNEUMONIAE- RESP PCR PANEL NOT DETECTED; PARAINFLUENZA VIRUS 1 NOT DETECTED; PARAINFLUENZA VIRUS 2 NOT DETECTED; PARAINFLUENZA VIRUS 3 NOT DETECTED; PARAINFLUENZA VIRUS 4 NOT DETECTED; RHINOVIRUS/ENTEROVIRUS NOT DETECTED; RSV- RESP PCR PANEL NOT DETECTED; SARS-CoV-2 -RESP PCR PANEL NOT DETECTED
--- NOTE | 2022-12-15 07:40 | CT Report ---
PROCEDURE: HEAD WO INDICATIONS: AMS TECHNIQUE: Noncontrast 4.5 mm thick angled axial sections acquired from the foramen magnum to the vertex. For r adiation dose reduction, the following was used: automated exposure control, adjustment of mA and/or kV according to patient size. COMPARISON: None. FINDINGS: Image quality: Excellent. CSF spaces: Basal cisterns are patent. No extra-axial fluid collections. Ventricles are normal in size and shape. Brain: No midline shift. No intracranial masses or hemorrhage. Bran-white matter interface is norm al. Subcortical and periventricular hypodensities are consistent with microvascular ischemic disease and age-related cerebral volume loss. Skull and face: Calvarium and visualized facial bones are intact, without suspicious lesions. Sinuses: Visualized sinuses and mastoids are clear. IMPRESSION: 1. No acute intracranial abnormality. 2. Microvascular ischemic disease and age-related cerebral volume loss. Findings above correspond with preliminary findings by [facility]. Reviewed by: Eduardo Paulino on 12/15/2022 7:38 AM PDT Approved by: Eduardo Paulino on 12/15/2022 7:38 AM PDT Station ID: [id number]
--- NOTE | 2022-12-15 07:41 | XRAY Report ---
PROCEDURE: Chest 2 View X-Ray INDICATIONS: hypoxia, AMS TECHNIQUE: 2 views of the chest were acquired. COMPARISON: None. FINDINGS: Surgical changes and devices: None. Lungs and pleura: Probable small pleural effusions. Perihilar and bibasilar airspace opacities prese nt. No pneumothorax. Mediastinum: Cardiomegaly. Bones and chest wall: No suspicious bony lesions. Overlying soft tissues appear unremarkable. IMPRESSION: Cardiomegaly with small pleural effusions and perihilar and bibasilar airspace opacities indicate rachel ma or pneumonia. Findings above correspond with preliminary findings by [facility]. Reviewed by: Eduardo Paulino on 12/15/2022 7:40 AM PDT Approved by: Eduardo Paulino on 12/15/2022 7:40 AM PDT Station ID: [id number]
[2022-12-15] MEDS ORDERED: HEPARIN 25000UNITS/500ML (D5W) 25,000 UNIT/500 ML BAG IV SCH (08:00)
[2022-12-15 15:05] VITALS: BP 137/86
== END 2022-12-15 16:13 | disposition short-term general hospital (02) ==
LOC: ED 03:24
DX: I21.4 Non-ST elevation (NSTEMI) myocardial infarction (principal); I50.9 Heart failure, unspecified; I11.0 Hypertensive heart disease with heart failure; I48.92 Unspecified atrial flutter; Z91.81 History of falling; Z79.01 Long term (current) use of anticoagulants
CPT/HCPCS: 36415; 80053; 81001; 81003; 83690; 83880; 84443; 84484; 85025; 85730; 87086; 87633; 93005; 94640; 94664; 96374; 96375; 99285

== ENCOUNTER 2022-12-15 15:57 | Outpatient (CLI) | payer MEDICARE, OTHER | END 2022-12-15 15:58 | disposition short-term general hospital (02) | LOC: EMS 15:57 | PROVIDERS: ATTEND Emergency Medicine | DX: I21.4 Non-ST elevation (NSTEMI) myocardial infarction (principal); R41.0 Disorientation, unspecified; R45.1 Restlessness and agitation | CPT/HCPCS: A0425; A0426 ==

== ENCOUNTER 2023-03-28 15:56 | Outpatient (CLI) | payer MEDICARE, OTHER | END 2023-03-28 23:59 | disposition EMS.NT | LOC: EMS 15:56 | DX: S51.011A Laceration without foreign body of right elbow, initial encounter (principal); W18.39XA Other fall on same level, initial encounter; Y92.000 Kitchen of unspecified non-institutional (private) residence as the place of occurrence of the external cause ==

== ENCOUNTER 2023-03-28 16:47 | Outpatient (CLI) | payer MEDICARE, OTHER | END 2023-03-28 23:59 | disposition critical access hospital (66) | LOC: EMS 16:47 | DX: M54.6 Pain in thoracic spine (principal); W18.30XA Fall on same level, unspecified, initial encounter; Y92.009 Unspecified place in unspecified non-institutional (private) residence as the place of occurrence of the external cause; Z79.01 Long term (current) use of anticoagulants | CPT/HCPCS: A0425; A0429 ==

== ENCOUNTER 2023-03-28 17:52 | Emergency (ER) | payer MEDICARE, OTHER ==
--- NOTE | 2023-03-28 18:00 | ED Physician Documentation ---
PD HPI BACK PAIN - Stated complaint Stated Complaint: GLF/HEAD INJ - History obtained from History obtained from: Patient - Additional information Additional information: 88-year-old gentleman on [place] was in his house with his . She handed in the iPad but he did not quite have it in his hand and he fumbled it and fell backwards hitting his back in the back of his head on the ground. He did not lose consciousness. He has been ambulatory since the accident. He also has a skin tear on the right elbow. He denies headache. PD PAST MEDICAL HISTORY - Past Medical History Cardiovascular: Hypertension, High cholesterol Respiratory: COPD, CPAP use - Past Surgical History Past Surgical History: Yes - Present Medications Home Medications: Ambulatory Orders Medication Instructions Recorded Confirmed Calcium Carbonate/Vitamin D3 1 tab ORAL DAILY 05/19/15 05/19/15 [Calcium 500 + Vit D 200 Tablet] Folic Acid 1 mg PO DAILY 05/19/15 05/19/15 Omeprazole [PriLOSEC] 20 mg PO QDLUNCH 05/19/15 05/20/15 Tamsulosin [Flomax] 0.4 mg PO QPM 05/19/15 05/20/15 Warfarin [Coumadin] 2.5 mg PO DAILY 05/19/15 05/19/15 metHOTREXate sodium [Methotrexate] 30 mg PO ONCE 05/19/15 05/20/15 predniSONE [Deltasone] 5 mg PO 0800 05/19/15 05/20/15 Albuterol Sulf [Ventolin Hfa 04/12/18 Inhaler] Fluticasone/Salmeterol [Advair 04/12/18 100-50 Diskus] Losartan [Cozaar] 04/12/18 Nystatin Cream [Mycostatin Cream] 04/12/18 Triamcinolone 0.1% Cream [Kenalog 04/12/18 0.1% Cream] Ubidecarenone [Coenzyme Q-10] 04/12/18 - Allergies Allergies/Adverse Reactions: Allergies Allergy/AdvReac Type Severity Reaction Status Date / Time hydroxychloroquine sulfate * Allergy Intermediate Itching Verified 12/15/22 03:46 [From Plaquenil] benzonatate Allergy Unknown Verified 12/15/22 03:46 [From Tessalon Perles] midazolam Allergy Unknown Verified 12/15/22 03:46 risedronate sodium Allergy Unknown Verified 12/15/22 03:46 adhesive tape AdvReac Unknown Verified 12/15/22 03:46 - Social History Does the pt smoke?: No Smoking Status: Never smoker Does the pt drink ETOH?: No Does the pt have substance abuse?: No - Immunizations Immunizations are current?: Yes - POLST Patient has POLST: No PD ED PE NORMAL - Vitals Vital signs reviewed: Yes - General General: Alert and oriented X 3, Other (Hard of hearing and mostly blind) - Neck Neck: Supple, no meningeal sign, No bony TTP - Respiratory Respiratory: No respiratory distress, Clear bilaterally - Abdomen Abdomen: Non tender - Back Back: Other (Some tenderness of the low T-spine. No rib tenderness.) - Extremities Extremities: Other (Small skin tear on the olecranon without tenderness or limited range of motion on the right.) - Neuro Neuro: Alert and oriented X 3 Eye Opening: Spontaneous Motor: Obeys Commands Verbal: Oriented GCS Score: 15 Results - Vitals Vitals: Vital Signs - 24 hr 03/28/23 18:01 Temperature 36.2 C L Heart Rate 58 L Respiratory 18 Rate Blood Pressure 147/111 H O2 Saturation 95 Oxygen O2 Source [] Room air O2 Source Room air - Rads (name of study) CT of the cervical spine shows very mild superior endplate compression fracture of T1. Some stenosis lower down. Relevant Findings:: Final report received, EMP independent interpretation of test CT of the cervical spine shows severe spondylosis but no cervical spine injury. Relevant Findings:: Final report received, EMP independent interpretation of test CT of the head showing chronic atrophy and small vessel ischemic change without traumatic injury. Relevant Findings:: Final report received, EMP independent interpretation of test Procedures - Laceration (location) R elbow Length in cm: 1 Wound type: Linear, Superficial Wound preparation: Irrigated copiously NS Skin layer closure: Dermabond Other: Tetanus UTD Departure - Departure Disposition: 01 Home, Self Care Clinical Impression: Adequate anticoagulation on anticoagulant therapy, Compression fracture of T1 vertebra Head injury Qualifiers: Encounter type: initial encounter Qualified Code(s): S09.90XA - Unspecified injury of head, initial encounter Back contusion Qualifiers: Encounter type: initial encounter Laterality: unspecified laterality Qualified Code(s): S20.229A - Contusion of unspecified back wall of thorax, initial encounter Condition: Good Instructions: ED Contusion Back, ED Head Injury Closed, ED Fx Comp Vertebral Comments: Return if any of your symptoms worsen. You can take Tylenol as needed for pain. Follow-up with your doctor next week for recheck. Forms: PCP List
--- NOTE | 2023-03-28 19:21 | CT Report ---
PROCEDURE: CERVICAL SPINE WO INDICATIONS: Fall, anticoagulated, head and back injuries TECHNIQUE: Noncontrast 3 mm thick sections acquired from the skull base to the T4 level. Sagittal and coronal r eformats were then constructed. For radiation dose reduction, the following was used: automated exp osure control, adjustment of mA and/or kV according to patient size. COMPARISON: Thoracic spine CT obtained at the same time. FINDINGS: Image quality: Excellent. Bones: Acute mild superior endplate compression fracture of T1. No cervical fractures or dislocation s. Severe cervical spondylitic change. Prominent multilevel facet arthropathy, predominantly left-mak ed. Multilevel bony foraminal narrowing bilaterally with bilateral bony foraminal nerve root impingem ent. Visualized superior ribs are intact. Soft tissues: Prevertebral soft tissues are normal in thickness. No paravertebral hematomas. No ap ical pneumothoraces. IMPRESSION: 1. Mild superior endplate compression fracture of T1. 2. No other cervical fractures or dislocations. 3. Severe cervical spondylitic change. Reviewed by: Sandip Kendall MD on 03/28/2023 7:19 PM PDT Approved by: Sandip Kendall MD on 03/28/2023 7:19 PM PDT Station ID: [id number]
--- NOTE | 2023-03-28 19:23 | CT Report ---
PROCEDURE: THORACIC SPINE WO INDICATIONS: Fall, anticoagulated, head and back injuries TECHNIQUE: Noncontrast 3 mm thick sections acquired through the region of interest in the thoracic spine. Sagit yoselin and coronal reformats were then constructed. For radiation dose reduction, the following was used : automated exposure control, adjustment of mA and/or kV according to patient size. COMPARISON: Cervical spine CT from the same time. FINDINGS: Image quality: Excellent. Bones: There is normal overall bony alignment. There is a very mild very subtle superior endplate ac lummi compression of T1. No other thoracic compressions identified. There are ossifications posterior t o the thoracic cord at T5-T6 and T6-T7. At T6-T7, and results in mild canal stenosis. No suspicious s clerotic or lytic bony lesions. Central spinal canal is of normal overall caliber. Soft tissues: No paravertebral masses or hematomas. Visualized posteromedial lungs appear clear. IMPRESSION: 1. Very subtle very mild acute compression fracture of T1. 2. No other thoracic fracture is identified. 3. Benign etiology mild canal stenosis at T6-T7. Reviewed by: Sandip Kendall MD on 03/28/2023 7:22 PM PDT Approved by: Sandip Kendall MD on 03/28/2023 7:22 PM PDT Station ID: [id number]
--- NOTE | 2023-03-28 19:24 | CT Report ---
PROCEDURE: HEAD WO INDICATIONS: Fall, anticoagulated, head and back injuries TECHNIQUE: Noncontrast 4.5 mm thick angled axial sections acquired from the foramen magnum to the vertex. For r adiation dose reduction, the following was used: automated exposure control, adjustment of mA and/or kV according to patient size. COMPARISON: 12/15/2022. FINDINGS: Image quality: Excellent. CSF spaces: Basal cisterns are patent. No extra-axial fluid collections. Ventricles are normal in size and shape. Brain: No midline shift. No intracranial masses or hemorrhage. Bran-white matter interface is norm al. Mild to moderate small vessel ischemic change, age appropriate. Skull and face: Calvarium and visualized facial bones are intact, without suspicious lesions. Sinuses: Visualized sinuses and mastoids are clear. IMPRESSION: 1. Age-related volume loss and age-appropriate small vessel ischemic change. 2. No acute intracranial abnormality. Reviewed by: Sandip Kendall MD on 03/28/2023 7:23 PM PDT Approved by: Sandip Kendall MD on 03/28/2023 7:23 PM PDT Station ID: [id number]
[2023-03-28 19:36] VITALS: BP 147/81
== END 2023-03-28 19:39 | disposition home or self-care (01) ==
LOC: EDUNIT# → ED 17:52
DX: S09.90XA Unspecified injury of head, initial encounter (principal); S32.019A Unspecified fracture of first lumbar vertebra, initial encounter for closed fracture; S20.229A Contusion of unspecified back wall of thorax, initial encounter; W18.30XA Fall on same level, unspecified, initial encounter; I10 Essential (primary) hypertension; E78.00 Pure hypercholesterolemia, unspecified; J44.9 Chronic obstructive pulmonary disease, unspecified; Z79.899 Other long term (current) drug therapy; Z79.01 Long term (current) use of anticoagulants; Z79.51 Long term (current) use of inhaled steroids
CPT/HCPCS: 12001; 99283; 99284

== ENCOUNTER 2023-04-03 21:18 | Outpatient (CLI) | payer MEDICARE, OTHER | END 2023-04-03 23:59 | disposition critical access hospital (66) | LOC: EMS 21:18 | DX: R10.84 Generalized abdominal pain (principal); R10.817 Generalized abdominal tenderness; R14.0 Abdominal distension (gaseous); R19.8 Other specified symptoms and signs involving the digestive system and abdomen | CPT/HCPCS: A0425; A0429 ==

== ENCOUNTER 2023-04-03 21:51 | Emergency (ER) | payer MEDICARE, OTHER ==
--- NOTE | 2023-04-03 22:48 | ED Physician Documentation ---
PD HPI ABD PAIN - Stated complaint Stated Complaint: CONSTIPATION - Chief complaint Chief Complaint: Abd Pain - History obtained from History obtained from: Family ( of patient) - Additional information Additional information: HPI is predominantly from patient's (in ED at bedside). Patient provides some HPI but uncertain as to reliability of his HPI/ROS. Patient was T+R from this ED 6 days ago (03/28/23) for fall, back pain, found to have upper thoracic vertebral fractures on radiologic studies. Patient presents to ED tonight due to back pain and upper abdominal pain and distention since the previous ED visit. says he has had minimal BM since eval 6 days ago and she notes abdominal distention. No falls since previous evaluation. No fevers. No vomiting. Tonight is his 7th ED visit over past 12 months to 3 different EDs. says no results (BM) despite miralax , senna. She also gave patient tylenol for abdominal/back pain. Review of Systems Constitutional: denies: Fever Cardiac: reports: Reviewed and negative Respiratory: reports: Reviewed and negative GI: reports: Abdominal Pain, Abdominal Swelling, Constipation. denies: Vomiting, Diarrhea PD PAST MEDICAL HISTORY - Past Medical History Cardiovascular: Hypertension, High cholesterol Respiratory: COPD, CPAP use - Past Surgical History Past Surgical History: Yes - Present Medications Home Medications: Ambulatory Orders Medication Instructions Recorded Confirmed Calcium Carbonate/Vitamin D3 1 tab ORAL DAILY 05/19/15 05/19/15 [Calcium 500 + Vit D 200 Tablet] Folic Acid 1 mg PO DAILY 05/19/15 05/19/15 Omeprazole [PriLOSEC] 20 mg PO QDLUNCH 05/19/15 05/20/15 Tamsulosin [Flomax] 0.4 mg PO QPM 05/19/15 05/20/15 Warfarin [Coumadin] 2.5 mg PO DAILY 05/19/15 05/19/15 metHOTREXate sodium [Methotrexate] 30 mg PO ONCE 05/19/15 05/20/15 predniSONE [Deltasone] 5 mg PO 0800 05/19/15 05/20/15 Albuterol Sulf [Ventolin Hfa 04/12/18 Inhaler] Fluticasone/Salmeterol [Advair 04/12/18 100-50 Diskus] Losartan [Cozaar] 04/12/18 Nystatin Cream [Mycostatin Cream] 04/12/18 Triamcinolone 0.1% Cream [Kenalog 04/12/18 0.1% Cream] Ubidecarenone [Coenzyme Q-10] 04/12/18 - Allergies Allergies/Adverse Reactions: Allergies Allergy/AdvReac Type Severity Reaction Status Date / Time hydroxychloroquine sulfate * Allergy Intermediate Itching Verified 04/03/23 22:02 [From Plaquenil] benzonatate Allergy Unknown Verified 04/03/23 22:02 [From Tessalon Perles] midazolam Allergy Unknown Verified 04/03/23 22:02 risedronate sodium Allergy Unknown Verified 04/03/23 22:02 adhesive tape AdvReac Unknown Verified 04/03/23 22:02 - Social History Does the pt smoke?: No Smoking Status: Never smoker Does the pt drink ETOH?: No Does the pt have substance abuse?: No - Immunizations Immunizations are current?: Yes - POLST Patient has POLST: No PD ED PE NORMAL - Vitals Vital signs reviewed: Yes - General General: No acute distress, Well developed/nourished, Other (awake, alert. difficult to understand due to combination of agitation and dysarthria. Follows commands ) - HEENT HEENT: Moist mucous membranes - Neck Neck: Supple, no meningeal sign, No bony TTP - Cardiac Cardiac: RRR - Respiratory Respiratory: No respiratory distress, Clear bilaterally - Abdomen Abdomen: Soft, Non tender - Back Back: No spinal TTP - Derm Derm: Normal color, Warm and dry PD ED PE EXPANDED - Abdomen Abdomen: Decreased BS, Distended (mild). No: Tender to palpation Results - Vitals Vitals: Oxygen O2 Source [Without Activity] Room air O2 Source Room air - Labs Labs: Laboratory Tests 04/03/23 04/03/23 04/03/23 23:07 23:23 23:23 WBC 7.5 RBC 4.03 L Hgb 12.8 L Hct 38.0 L MCV 94.3 H MCH 31.8 H MCHC 33.7 RDW 14.1 Plt Count 198 MPV 9.6 Neut # (Auto) 5.4 Lymph # (Auto) 1.0 L [place] # (Auto) 0.9 Eos # (Auto) 0.1 Baso # (Auto) 0.0 Absolute Nucleated RBC 0.00 Nucleated RBC % 0.0 Sodium 130 L Potassium 3.3 L Chloride 97 L Carbon Dioxide 19 L Anion Gap 14.0 H BUN 29 H Creatinine 0.8 Estimated GFR (MDRD) 91 Glucose 118 H Calcium 8.7 Total Bilirubin 1.0 AST 30 ALT 22 Alkaline Phosphatase 54 Total Protein 6.5 L Albumin 3.4 Globulin 3.1 Albumin/Globulin Ratio 1.1 Lipase 25 Urine Color YELLOW Urine Clarity CLEAR Urine pH 8.0 H Ur Specific Ida 1.015 Urine Protein NEGATIVE Urine Glucose (UA) >=1000 H Urine Ketones NEGATIVE Urine Occult Blood NEGATIVE Urine Nitrite NEGATIVE Urine Bilirubin NEGATIVE Urine Urobilinogen 0.2 (NORMAL) Ur Leukocyte Esterase NEGATIVE Ur Microscopic Review NOT INDICATED Urine Culture Comments NOT INDICATED - Rads (name of study) CTH Relevant Findings:: Prelim report reviewed, See rad report CT A/P Relevant Findings:: Prelim report reviewed, See rad report PD Medical Decision Making - ED course Complexity details: reviewed old records, reviewed results, re-evaluated patient, considered differential, d/w patient, d/w family ED course: CTH performed due to patient' agitation. I could not ascertain from patient's as to whether his agitation is baseline or new/subacute onset. Given his recent fall (for which he was T+R from this ED 6 days ago) combined with medications that include eliquis, and possible new onset/ongoing agitation, a CTH is performed and this again has no acute/concerning findings (similar to CTH performed on 03/28/[address] A/P undertaken. There was significant delay in obtaining this study along with radiologist's interpretation, but once the reading was available, the only notable finding (per radiologist's reading) is moderate/large amount of colonic stool to suggest constipation. No evidence of SBO. Patient is given morphine IV for his pain, 2 mg with one repeat dose of same. Also given 4mg IV zofran for n/v. After CT results available, he is given soap suds enema. ED RN reports that there was small MI output , firm pellet-like stool, but this also was associated with patient appearing to be significantly more comfortable and reporting feeling much improved. He remained asymptomatic for remainder of prolonged ED observation (over 9 hours, partially due to extensive w/u with delay in test results, as well as went home to get some sleep). Results d/w patient and his , return precautions reviewed, f/u advised. Departure - Departure Disposition: 01 Home, Self Care Clinical Impression: Constipation Qualifiers: Constipation type: unspecified constipation type Qualified Code(s): K59.00 - Constipation, unspecified Condition: Good Instructions: ED Constipation Comments: There were no concerning nor diagnostic findings on tonight's test, including the blood test and the CT scan of your abdomen pelvis. The most notable finding on tonight's tests is that there is a large amount of stool throughout your colon on the CT scan; this would be consistent with constipation. You were given an enema in the emergency department. If you continue to feel abdominal bloating, abdominal cramping, and/or you do not feel that you are having normal and regular bowel movements, you can use [id number] medications to treat constipation (such as milk of magnesia, fleets enemas). Follow label instructions. Follow up with your primary care provider, next available appointment, for reevaluation. Forms: PCP List Discharge Date/Time: 04/04/23 07:00
[2023-04-03] MEDS ORDERED: MORPHINE 2 MG/ML CARPUJECT IVP STA (23:02)
[2023-04-03 23:24] LABS: BILIRUBIN,URINE NEGATIVE (NEGATIVE); GLUCOSE, URINE (UA) >=1000 mg/dL (NEGATIVE); KETONES,URINE (UA) NEGATIVE (NEGATIVE); LEUKOCYTE ESTERASE, URINE NEGATIVE (NEGATIVE); NITRITE,URINE NEGATIVE (NEGATIVE); OCCULT BLOOD,URINE NEGATIVE (NEGATIVE); PROTEIN,URINE NEGATIVE (NEGATIVE); UROBILINOGEN,URINE 0.2 (NORMAL) E.U./dL (NORMAL)
[2023-04-03 23:36] LABS: BASOPHILS % (AUTO) 0.4 %; EOSINOPHILS # (AUTO) 0.1 10^3/uL (0.0-0.7); EOSINOPHILS % (AUTO) 1.2 %; HGB - HEMOGLOBIN 12.8 g/dL (14.0-18.0); LYMPHOCYTES % (AUTO) 13.3 %; MEAN CORPUSCULAR HEMOGLOBIN 31.8 pg (27.0-31.0); MEAN CORPUSCULAR HGB CONC 33.7 g/dL (32.0-36.0); MEAN CORPUSCULAR VOLUME 94.3 fL (80.0-94.0); MEAN PLATELET VOLUME 9.6 fL (7.4-11.4); MONOCYTES # (AUTO) 0.9 10^3/uL (0.0-1.0); MONOCYTES % (AUTO) 12.1 %; NEUTROPHILS # (AUTO) 5.4 10^3/uL (1.5-6.6); NEUTROPHILS % (AUTO) 71.8 %; PLT - PLATELET COUNT 198 10^3/uL (130-450); RED BLOOD COUNT 4.03 10^6/uL (4.70-6.10); RED CELL DISTRIBUTION WIDTH 14.1 % (12.0-15.0); WHITE BLOOD COUNT 7.5 x10^3/uL (4.8-10.8)
[2023-04-03 23:36] LABS: CLARITY,URINE CLEAR (CLEAR)
[2023-04-03 23:46] LABS: ALBUMIN 3.4 g/dL (3.2-5.5); ALBUMIN/GLOBULIN RATIO 1.1 (1.0-2.2); CALCIUM 8.7 mg/dL (8.5-10.3); CREATININE 0.8 mg/dL (0.6-1.2); POTASSIUM 3.3 mmol/L (3.5-5.0); TOTAL PROTEIN 6.5 g/dL (6.7-8.2)
[2023-04-04] MEDS ORDERED: MORPHINE 2 MG/ML CARPUJECT IVP STA (00:30)
[2023-04-04] MEDS ORDERED: ONDANSETRON 4 MG/2 ML VIAL IVP STA (00:30)
[2023-04-04] MEDS ORDERED: iohexoL-300 100 ML VIAL IVP ONE (02:07)
--- NOTE | 2023-04-04 02:54 | CT Report ---
PROCEDURE: HEAD WO INDICATIONS: fell 6 days ago, on eliquis, now agitated TECHNIQUE: Noncontrast 4.5 mm thick angled axial sections acquired from the foramen magnum to the vertex. For r adiation dose reduction, the following was used: automated exposure control, adjustment of mA and/or kV according to patient size. COMPARISON: CT head 03/28/2023. FINDINGS: Image quality: Excellent. CSF spaces: There is moderate cerebral volume loss with prominence of the ventricles and sulci. Basa l cisterns are patent. No extra-axial fluid collections. Brain: No intracranial hemorrhage, mass, or mass effect. Bran-white matter interface is preserved. T here are subcortical and periventricular white matter hypodensities consistent with moderate chronic small vessel ischemic changes. Skull and face: Calvarium and visualized facial bones are intact, without suspicious lesions. Sinuses: Visualized sinuses and mastoids are clear. IMPRESSION: 1. No acute intracranial abnormality. 2. Moderate cerebral volume loss and chronic white matter small vessel ischemic changes. Reviewed by: Theodore Pinzon MD on 04/04/2023 2:53 AM PDT Approved by: Theodore Pinzon MD on 04/04/2023 2:53 AM PDT Station ID: [id number]
--- NOTE | 2023-04-04 02:58 | CT Report ---
PROCEDURE: ABDOMEN/PELVIS W INDICATIONS: abd. pain, distension CONTRAST: Omni 300 100ml TECHNIQUE: After the administration of intravenous contrast, 5 mm thick sections acquired from the diaphragms to the symphysis. 5 mm thick coronal and sagittal reformats were acquired. For radiation dose reducti on, the following was used: automated exposure control, adjustment of mA and/or kV according to marion ent size. COMPARISON: None. FINDINGS: Image quality: There is motion artifact limiting evaluation. There is also metallic streak artifact f rom patient's right hip surgical hardware. Lung bases:There is mild dependent atelectasis and scarring the lung bases. Heart:Heart size is enlarged. There is a prosthetic aortic valve. A small hiatal hernia is present. ABDOMEN: Liver: No definite mass lesion. Gallbladder:Surgically absent. Biliary ducts: No biliary ductal dilatation. Pancreas: Unremarkable. Spleen: Normal in size. Adrenal Glands: No adrenal nodules. Kidneys and Ureters: No hydronephrosis. Stomach and Bowel: Stomach and small bowel loops are normal in caliber and wall thickness. No perice srinivas inflammatory changes to suggest appendicitis. A moderate to large amount of stool is demonstrated throughout the colon compatible constipation. There is colonic diverticulosis without acute divertic ulitis. Peritoneum: No abnormal intraperitoneal fluid. No free air. Ventral Wall: No hernia. Abdominal Nodes: No retroperitoneal or mesenteric adenopathy by size criteria. Vessels: Aorta and inferior vena cava are normal in size. PELVIS: Pelvic Organs: Unremarkable. Bladder: Unremarkable. Pelvic Nodes: No enlarged lymph nodes. Miscellaneous: There is a small right inguinal hernia with partial herniation of a small bowel loop. No associated bowel obstruction or strangulation. Bones: There are old healed fractures of the bilateral superior and inferior pubic rami. Visualized o sseous structures demonstrate no suspicious lesions. IMPRESSION: 1. Moderate to large amount of colonic stool suggestive of constipation. No evidence of small bowel o bstruction. Reviewed by: Theodore Pinzon MD on 04/04/2023 2:57 AM PDT Approved by: Theodore Pinzon MD on 04/04/2023 2:57 AM PDT Station ID: [id number]
[2023-04-04] MEDS ORDERED: SOAP SUDS ENEMA 1 EACH RC STA (03:49)
[2023-04-04 06:35] VITALS: BP 116/95
== END 2023-04-04 07:00 | disposition home or self-care (01) ==
LOC: EDUNIT# → ED 21:51
DX: K59.00 Constipation, unspecified (principal)
CPT/HCPCS: 36415; 70450; 74177; 80053; 81003; 83690; 85025; 96374; 96376; 99283; 99284; A9270; Q9967; 81001; 87086

== ENCOUNTER 2023-04-09 03:59 | Outpatient (CLI) | payer MEDICARE, OTHER | END 2023-04-09 23:59 | disposition critical access hospital (66) | LOC: EMS 03:59 | DX: S09.92XA Unspecified injury of nose, initial encounter (principal); W01.198A Fall on same level from slipping, tripping and stumbling with subsequent striking against other object, initial encounter; Y92.008 Other place in unspecified non-institutional (private) residence as the place of occurrence of the external cause; Z79.01 Long term (current) use of anticoagulants | CPT/HCPCS: A0425; A0429 ==

== ENCOUNTER 2023-04-09 05:15 | Emergency (ER) | payer MEDICARE, OTHER ==
[2023-04-09] MEDS ORDERED: BACITRACIN ZINC OINT 1 PACKET TOP STA (05:29)
--- NOTE | 2023-04-09 05:34 | ED Physician Documentation ---
History of Present Illness - Stated complaint Stated Complaint: GLF - Chief complaint Chief Complaint: Laceration - History obtained from History obtained from: Patient, EMS - Additonal information Additional information: The patient comes to the emergency department chief complaint of ground-level fall at home. He was ambulating through his house when he tripped over the treadmill and fell to the floor. He did not lose consciousness. He feels like he fell straight onto his nose and also, he was noted to have some skin tears on his left hand and arm. He denies any other complaints at this time that are new. He has some residual back pain from a fall On March 11, he states, but otherwise, denies any new symptoms from this fall beyond what is stated above. He no chest pain. No rib pain. No difficulty breathing. No abdominal pain. No numbness or tingling that is new in his extremities. He has a history of peripheral neuropathy which feels at baseline to him. He denies neck pain. No other complaints at this time. PD PAST MEDICAL HISTORY - Past Medical History Cardiovascular: Hypertension, High cholesterol Respiratory: COPD, CPAP use - Past Surgical History Past Surgical History: Yes - Present Medications Home Medications: Ambulatory Orders Medication Instructions Recorded Confirmed Calcium Carbonate/Vitamin D3 1 tab ORAL DAILY 05/19/15 05/19/15 [Calcium 500 + Vit D 200 Tablet] Folic Acid 1 mg PO DAILY 05/19/15 05/19/15 Omeprazole [PriLOSEC] 20 mg PO QDLUNCH 05/19/15 05/20/15 Tamsulosin [Flomax] 0.4 mg PO QPM 05/19/15 05/20/15 Warfarin [Coumadin] 2.5 mg PO DAILY 05/19/15 05/19/15 metHOTREXate sodium [Methotrexate] 30 mg PO ONCE 05/19/15 05/20/15 predniSONE [Deltasone] 5 mg PO 0800 05/19/15 05/20/15 Albuterol Sulf [Ventolin Hfa 04/12/18 Inhaler] Fluticasone/Salmeterol [Advair 04/12/18 100-50 Diskus] Losartan [Cozaar] 04/12/18 Nystatin Cream [Mycostatin Cream] 04/12/18 Triamcinolone 0.1% Cream [Kenalog 04/12/18 0.1% Cream] Ubidecarenone [Coenzyme Q-10] 04/12/18 - Allergies Allergies/Adverse Reactions: Allergies Allergy/AdvReac Type Severity Reaction Status Date / Time hydroxychloroquine sulfate * Allergy Intermediate Itching Verified 04/03/23 22:02 [From Plaquenil] benzonatate Allergy Unknown Verified 04/03/23 22:02 [From Tessalon Perles] midazolam Allergy Unknown Verified 04/03/23 22:02 risedronate sodium Allergy Unknown Verified 04/03/23 22:02 adhesive tape AdvReac Unknown Verified 04/03/23 22:02 - Social History Does the pt smoke?: No Smoking Status: Never smoker Does the pt drink ETOH?: No Does the pt have substance abuse?: No - Immunizations Immunizations are current?: Yes - POLST Patient has POLST: No PD ED PE NORMAL - Vitals Vital signs reviewed: Yes - General General: Alert and oriented X 3, No acute distress, Well developed/nourished - HEENT HEENT: PERRL, EOMI, Moist mucous membranes, Other (Skin and superficial tissue avulsion over left nasal bridge. Mild tenderness over the nasal bridge with some contusion and mild swelling. No tenderness to palpation of any other regions of face.) - Neck Neck: Supple, no meningeal sign, No bony TTP - Cardiac Cardiac: RRR, No murmur - Respiratory Respiratory: No respiratory distress, Clear bilaterally - Abdomen Abdomen: Soft, Non tender, Non distended - Derm Derm: Warm and dry, Other (Skin tears involving the left dorsal hand and forearm.) - Extremities Extremities: No deformity - Neuro Neuro: Alert and oriented X 3 - Psych Psych: Normal mood, Normal affect Results - Vitals Vitals: Oxygen O2 Source [Without Activity] Room air O2 Source Room air - Rads (name of study) head CT Relevant Findings:: Final report received, See rad report (neg) Maxillofacial CT Relevant Findings:: Final report received, See rad report (nasal bone tip fx.) cervical spine CT Relevant Findings:: Final report received, See rad report (nad) PD Medical Decision Making - ED course Complexity details: reviewed results, re-evaluated patient, considered differential, d/w patient ED course: The patient was worked up with CTs of the head and face and C-spine. His wounds were dressed with bacitracin. Despite being on Eliquis, his bleeding was controlled. CTs did not show any serious injuries, and pt was stable for d/c. I have discussed the findings with the pt's , and and answered her questions. Departure - Departure Disposition: 01 Home, Self Care Clinical Impression: Ground-level fall, Skin tear Closed head injury Qualifiers: Encounter type: initial encounter Qualified Code(s): S09.90XA - Unspecified injury of head, initial encounter Condition: Stable Instructions: ED Head Injury Closed, ED Avulsion Dermal Comments: Your CT scans all look good. There is no evidence of any bleeding in the brain or any acutely broken bones. You do have evidence that you have broken your nose in the past and there is some scarring around this. You have torn your skin in several places, including on your nose and your left hand and forearm. Because these tears involve only the skin, they cannot be sutured. However, we have dressed all your wounds with antibiotic ointment. They will scab over and heal on their own. Forms: PCP List Discharge Date/Time: 04/09/23 08:00
[2023-04-09 07:52] VITALS: BP 141/79; O2SAT 99
--- NOTE | 2023-04-09 08:24 | CT Report ---
PROCEDURE: HEAD WO INDICATIONS: fall/head injury/Eliquis TECHNIQUE: Noncontrast 4.5 mm thick angled axial sections acquired from the foramen magnum to the vertex. For r adiation dose reduction, the following was used: automated exposure control, adjustment of mA and/or kV according to patient size. COMPARISON: 04/03/2023 FINDINGS: Image quality: Excellent. CSF spaces: Basal cisterns are patent. No extra-axial fluid collections. Ventricles are normal in size and shape. Brain: No midline shift. No intracranial masses or hemorrhage. Bran-white matter interface is norm al. Age-related Volume loss and moderate small vessel ischemic change. Skull and face: Calvarium and visualized facial bones are intact, without suspicious lesions. Sinuses: Visualized sinuses and mastoids are clear. IMPRESSION: No acute intracranial pathology. Age-appropriate volume loss and small vessel ischemic change. Findings are concordant with preliminary interpretation provided by [facility]. Reviewed by: Sandip Kendall MD on 04/09/2023 8:22 AM PDT Approved by: Sandip Kendall MD on 04/09/2023 8:22 AM PDT Station ID: [id number]
--- NOTE | 2023-04-09 08:31 | CT Report ---
PROCEDURE: CERVICAL SPINE WO INDICATIONS: Fall/head injury TECHNIQUE: Noncontrast 3 mm thick sections acquired from the skull base to the T4 level. Sagittal and coronal r eformats were then constructed. For radiation dose reduction, the following was used: automated exp osure control, adjustment of mA and/or kV according to patient size. COMPARISON: None. FINDINGS: Image quality: Excellent. Bones: No fractures or dislocations. Visualized superior ribs are intact. Severe cervical spondylo sis. Multilevel facet arthropathy. Severe multilevel disc height loss and uncovertebral joint hypertr ophy. Multilevel bony foraminal narrowing. There is canal stenosis at C5-C6 and C6-C7. Superior endpl ate T1 compression, first noted on 03/28/2023, is unchanged. Soft tissues: Prevertebral soft tissues are normal in thickness. No paravertebral hematomas. No ap ical pneumothoraces. IMPRESSION: 1. No acute cervical fracture or dislocation. 2. Unchanged mild superior endplate compression of T1. 3. Severe cervical spondylitic change. Reviewed by: Sandip Kendall MD on 04/09/2023 8:30 AM PDT Approved by: Sandip Kendall MD on 04/09/2023 8:30 AM PDT Station ID: [id number]
--- NOTE | 2023-04-09 08:34 | CT Report ---
PROCEDURE: MAXILLOFACIAL WO INDICATIONS: fall/facial injuries TECHNIQUE: Noncontrast 1.5 mm thick axial images acquired from the mandible through the frontal sinuses, with co nadia and sagittal reformatting. For radiation dose reduction, the following was used: automated ex posure control, adjustment of mA and/or kV according to patient size. COMPARISON: None. FINDINGS: Image quality: Excellent. Bones and teeth: Orbital sandoval are intact. Sinus sandoval show no fracture or deformity. Tip of nasal bone fracture. Nasal septum is intact.. Visualized portions of the mandible demonstrate no fractures or subluxation. Zygomatic arches are intact. Pterygoid plates are intact. Visualized portions of the skull base and auditory canals are intact. Patient is edentulous. Sinuses: Paranasal sinuses are aerated, without fluid levels, mucosal thickening, or mucoceles. Mas toid air cells are aerated. Soft tissues: No edema, masses, or fluid collections. No enlarged lymph nodes. No soft tissue lace rations or debris. Vascular: Visualized vascular structures appear normal in the absence of contrast. Bony vascular fo ramina and canals are intact. IMPRESSION: 1. Tip of nasal bone fracture. 2. No other facial fractures or mandibular fractures. 3. Orbits and globes are intact. Findings are concordant with preliminary interpretation provided by [facility]. Reviewed by: Sandip Kendall MD on 04/09/2023 8:33 AM PDT Approved by: Sandip Kendall MD on 04/09/2023 8:33 AM PDT Station ID: [id number]
== END 2023-04-09 08:00 | disposition home or self-care (01) ==
LOC: EDUNIT# → ED 05:15
DX: S09.92XA Unspecified injury of nose, initial encounter (principal); S09.90XA Unspecified injury of head, initial encounter; I10 Essential (primary) hypertension; W01.0XXA Fall on same level from slipping, tripping and stumbling without subsequent striking against object, initial encounter
CPT/HCPCS: 70450; 70486; 72125; 99283; 99284; A9270

== ENCOUNTER 2023-12-25 11:52 | Outpatient (CLI) | payer MEDICARE, OTHER ==
[2023-12-25 12:26] LABS: CALCIUM 9.6 mg/dL (8.5-10.3); CREATININE 0.9 mg/dL (0.6-1.3); POTASSIUM 4.2 mmol/L (3.5-4.5)
== END 2023-12-25 11:53 | disposition home or self-care (01) ==
LOC: LAB 11:52
PROVIDERS: ATTEND Internal Medicine Interventional Cardiology
DX: I50.9 Heart failure, unspecified (principal)
CPT/HCPCS: 36415; 80048